=== PATIENT | male | born 1955 ===

== ENCOUNTER → 2020-03-29 10:04 | Outpatient (BNVA) | payer BC, SELFPAY | PROVIDERS: Visit Provider Urology | DX: E29.1 Testicular hypofunction (principal) | CPT/HCPCS: 99212 ==

== ENCOUNTER → 2020-05-29 10:52 | Outpatient (BNVA) | payer BC, SELFPAY | PROVIDERS: Visit Provider Urology ==

== ENCOUNTER → 2020-12-27 10:40 | Outpatient (BNVA) | payer BC, SELFPAY | PROVIDERS: Visit Provider Urology ==

== ENCOUNTER → 2021-07-05 10:05 | Outpatient (BNVA) | payer MEDICARE, OTHER, SELFPAY | PROVIDERS: Visit Provider Urology | DX: E29.1 Testicular hypofunction (principal) | CPT/HCPCS: Q3014 ==

== ENCOUNTER 2021-07-19 13:52 | Outpatient (REF) | payer MEDICARE, OTHER, SELFPAY ==
--- NOTE | ~2021-07-19 | US_ITS ---
EXAMINATION: US RETROPERITONEAL LIMITED (RENAL ONLY) CLINICAL INFORMATION: Calculus of kidney. COMPARISON: None TECHNIQUE: Real-time imaging of the kidneys. FINDINGS: RIGHT KIDNEY: 11.0 x 5.0 x 5.8 cm (SAG x AP x TRV). The kidney is normal in size, contour, and echogenicity. Renal cortical thickness is normal. No calculi or focal parenchymal lesions. No hydronephrosis. LEFT KIDNEY: 11.5 x 6.1 x 5.7 cm (SAG x AP x TRV). The kidney is normal in size, contour, and echogenicity. Renal cortical thickness is normal. No renal calculi or hydronephrosis. There is an anechoic, nonnodular, noncalcified, nonseptated simple cyst measuring 1.1 x 0.9 x 1.0 cm in the mid kidney. Within the mid kidney there is a complex mass measuring 1.5 x 1.3 x 1.5 cm. There is peripheral echogenic thickening. There is thick septation measuring 4 mm.. There may be increased echogenicity within the septations. No calcification is seen within the mass. This would be classified as Bosniak 3 cyst. An MRI of this cystic mass is recommended for further evaluation. Further evaluation to exclude malignancy is recommended. US/US renal BI IMPRESSION: 1. There are bilateral nonobstructed kidneys. 2. There is a Bosniak 3 cystic mass within the mid left kidney. An MRI is recommended for further evaluation..
== END 2021-07-19 13:53 | disposition home or self-care (01) ==
LOC: HO.HMGCX 13:52
PROVIDERS: Visit Provider Urology
DX: N20.0 Calculus of kidney (principal)
CPT/HCPCS: 76775

== ENCOUNTER → 2022-01-02 08:09 | Outpatient (BNVA) | payer MEDICARE, OTHER, SELFPAY | PROVIDERS: Visit Provider Urology | DX: N28.1 Cyst of kidney, acquired (principal); E29.1 Testicular hypofunction; N52.9 Male erectile dysfunction, unspecified | CPT/HCPCS: Q3014 ==

== ENCOUNTER 2022-06-10 13:19 | Outpatient (REF) | payer MEDICARE, OTHER, SELFPAY ==
--- NOTE | ~2022-06-10 | MR_ITS ---
EXAMINATION: MR kidney wo/w con CLINICAL INFORMATION: Complex renal cyst COMPARISON: Renal cyst 07/19/2021 TECHNIQUE: MRI of the abdomen before and after the IV administration of 9 mL of Gadavist was obtained using routine sequences. FINDINGS: Exam is limited by the [id number]. The upper portion of the liver and spleen were excluded from the [id number] on this MR abdomen targeted to evaluate the kidneys. LUNG BASES: The visualized lung bases are unremarkable. KIDNEYS AND URETERS: Bosniak 1 bilateral renal cysts, and few Bosniak 2 left renal cysts, some which demonstrate intrinsic homogeneous hyperintense signal or a single thin internal septation. No routine follow up imaging recommended. No suspicious renal mass. GALLBLADDER: Unremarkable. LIVER AND BILIARY TREE: Unremarkable where imaged. PANCREAS: Unremarkable SPLEEN: Unremarkable where imaged. ADRENAL GLANDS: Unremarkable GASTROINTESTINAL TRACT: Unremarkable. LYMPH NODES: No lymphadenopathy. VASCULAR: Unremarkable ABDOMINAL WALL: Unremarkable. OSSEOUS STRUCTURES: T2 hyperintense lesion in the T12 vertebral body which saturates out on fat suppressed sequences and may reflect focal fat versus possibly a hemangioma. MR/MR kidney wo/w con IMPRESSION: Bilateral Bosniak 1 and Bosniak 2 renal lesions, for which no follow-up imaging is recommended. No suspicious renal mass.
== END 2022-06-10 13:20 | disposition home or self-care (01) ==
LOC: HO.MRI 13:19
PROVIDERS: PCP Internal Medicine; Visit Provider Urology
DX: N28.1 Cyst of kidney, acquired (principal)
CPT/HCPCS: 74181; A9585

== ENCOUNTER 2022-06-23 13:29 | Outpatient (REF) | payer MEDICARE, OTHER, SELFPAY ==
[2022-06-23 16:47] LABS: Hematocrit 49.2 % (42.0-52.0); Hemoglobin 16.2 g/dl (14.0-18.0); Mean Corpuscular HGB Conc 32.9 g/dl (31.0-36.0); Mean Platelet Volume 9.9 fL (9.4-12.4); Platelet Count 233 X10*3/uL (160-400); Red Blood Count 5.59 X10*6/uL (4.60-5.80); Red Cell Distribution Width 12.5 % (11.0-16.0); White Blood Count 8.2 X10*3/uL (4.8-10.8)
[2022-06-23 17:04] LABS: Blood Urea Nitrogen 32 mg/dL (9-16); Estimated Glomerular Filt Rate > 60
[2022-06-23 17:22] LABS: Prostate Specific Antigen 0.29 ng/mL (<0.05-4.0)
[2022-07-01 17:24] LABS: Testosterone, Free 83.5 pg/mL (35.0-155.0); Testosterone, Total 500 ng/dL (250-1100)
== END 2022-06-23 13:30 | disposition home or self-care (01) ==
LOC: HO.HMGCLDS 13:29
PROVIDERS: PCP Internal Medicine; Visit Provider Urology
DX: Z12.5 Encounter for screening for malignant neoplasm of prostate (principal); E29.1 Testicular hypofunction; N28.1 Cyst of kidney, acquired
CPT/HCPCS: 36415; 82565; 84153; 84402; 84403; 84520; 85027

== ENCOUNTER → 2022-07-03 11:33 | Outpatient (BNVA) | payer MEDICARE, OTHER, SELFPAY | PROVIDERS: PCP Internal Medicine; Visit Provider Urology | DX: E29.1 Testicular hypofunction (principal); N28.1 Cyst of kidney, acquired; Z79.899 Other long term (current) drug therapy | CPT/HCPCS: 99212 ==

== ENCOUNTER 2022-12-29 14:05 | Outpatient (REF) | payer MEDICARE, OTHER, SELFPAY ==
[2022-12-29 17:05] LABS: Hematocrit 51.6 % (42.0-52.0); Hemoglobin 17.5 g/dl (14.0-18.0); Mean Corpuscular HGB Conc 33.9 g/dl (31.0-36.0); Mean Corpuscular Hemoglobin 29.7 pg (27.0-33.0); Mean Corpuscular Volume 87.5 fL (80.0-98.0); Mean Platelet Volume 9.9 fL (9.4-12.4); Platelet Count 244 X10*3/uL (160-400); Red Cell Distribution Width 12.4 % (11.0-16.0); White Blood Count 9.1 X10*3/uL (4.8-10.8)
[2022-12-29 17:40] LABS: Prostate Specific Antigen 0.37 ng/mL (<0.05-4.0)
[2023-01-02 15:48] LABS: Testosterone, Total 1230 ng/dL (250-1100)
== END 2022-12-29 14:06 | disposition home or self-care (01) ==
LOC: HO.HMGCLDS 14:05
PROVIDERS: PCP Internal Medicine; Visit Provider Urology
DX: E29.1 Testicular hypofunction (principal); Z12.5 Encounter for screening for malignant neoplasm of prostate
CPT/HCPCS: 36415; 84153; 84403; 85027

== ENCOUNTER 2023-01-07 08:34 | Outpatient (AMB) | payer MEDICARE, OTHER, SELFPAY ==
--- NOTE | 2023-01-07 08:35 | MHC.OFFVIS ---
Intake Intake Visit Reasons: 6M LABS(set) Intake Note: Patient is present for Follow Up Urology Med: Testosterone Antibiotic Allergy: None Blood Thinner: None [facility]acy: [facility] Allergies No Known Allergies [No Known Allergies*] Allergy (Verified 01/07/23 08:36) Medication List - Last Reconciled 01/07/23 by Danish Gonzales MD empagliflozin (Jardiance) 10 mg PO DAILY metoprolol succinate ER 100 mg PO DAILY rosuvastatin 20 mg PO BEDTIME sacubitril-valsartan 97-103 mg (Entresto) 1 tab PO BID spironolactone 12.5 mg PO DAILY testosterone 4 pumps topical DAILY 30 days HPI HPI Comments History of Present Illness Details Luan is a very pleasant male. He is a patient of Dr Wood. He is seen for the following urologic conditions - hypogonadism - renal cyst complex - erectile dysfunction Telemedicine Evaluation 15 min Consultation [facility] Video attempted Consistent rise in testosterone level despite stable administration of gel Has recently switched aldosterone antagonist medication This may have off target effects with reduced testosterone clearance Adjust dosage to 1 pump per per day Repeat labs in 3 months Has been undergoing cardiac review following mitral valve repair mid 2020 Complex renal cyst Bosniak 3 Detected through ultrasound 07/30 Left 1.2 cm question complex renal cyst 04/01 bilateral Bosniak type 2 cysts. No need for further follow-up Hypogonadism: He presents today for further evaluation and followup of his hypogonadism - discussed likelihood of damage secondary to viral illness. Genetics may be warranted if fertility were a primary concern. Initial symptoms include erectile dysfunction Yes decreased libido Yes change in mood/depression Yes in muscle size/strength No increased fatigue/malaise Yes The onset of symptoms has been gradual Associate conditions include - diabetes obstructive sleep apnea No CAD - valve issues - mitral valve replacement 2019 dyslipidemia Yes hypertension Yes obesity No stress - financial, family, employment No heavy alcohol or illicit drug use No Laboratory results 07/28 , baseline - T 346 09/27 LH 25, T 240 10/28 T 290 - 02/27 T390 - 05/31 T 430, 11/28 T 460, Hct 44, PSA 0.3, 06/01 T 461 P 0.3, 11/29 T 412 P 0.3, 07/03 T 800 F 82 P 0.3, T 1230 F 84 Review labs in [address] [place] [address] Medical History Male hypogonadism Review of Systems Const All systems reviewed & are unremarkable except as noted in HPI and below Reports no additional complaints Resp Reports no additional complaints GI Reports no additional complaints Reports as per HPI Musc Reports no additional complaints Physical Exam Telemedicine evaluation Appropriate responses Regular breathing rate and rhythm HEENT Head: Yes normal to inspection Ears: hearing grossly normal bilaterally Eyes General: appearance normal, both eyes and all related structures Neck Neck: Yes normal visual inspection Chest Chest palpation & inspection: normal inspection of the chest Resp Effort & Inspection: normal respiratory effort and able to speak in complete sentences Assessment & Plan Assessment & Plan (1) Erectile dysfunction: Code(s): N52.9 - Male erectile dysfunction, unspecified (2) Hypogonadism in male: Code(s): E29.1 - Testicular hypofunction Plan Three month follow-up Orders: Orders Testosterone, Free/Total 3 Months E29.1 - Testicular hypofunction Patient Instructions: Imaging studies, laboratory and physical exam results were discussed and reviewed in detail. No major barriers to patient understanding were identified. An opportunity to ask questions regarding the treatment plan was provided. All questions were answered. The patient expressed understanding and agreement with the above treatment plan. The patient is aware they should contact our office by phone for worsening of their current condition or the appearance of new urologic symptoms. Compliance is encouraged with any medications and followup testing that is ordered. It is a privilege to participate in the urologic care of your patient. If you have any questions or concerns regarding treatment for the above conditions, or other urologic issues, please do not hesitate to contact me. The office telephone contact is [phone]. This note is constructed using voice recognition software. While every effort has been made to ensure accuracy emt intermediate errors may have been included. Yours sincerely, Dr Danish Gonzales MD, DINO [facility] - Urology Providers of Expert, Compassionate Care for the Genitourinary System Telehealth Telehealth Location of provider rendering services: practice address Location of patient: address on file Patient Identification confirmed using: Name, : Yes Telehealth method: video Patient verbally consented to treatment: Yes Patient verbally consented to billing insurance company: Yes Patient informed of any privacy concerns related to visit: Yes Coding Level of Care Code Tele Est Pt Level 4 (27578) Diagnoses Erectile dysfunction N52.9 Hypogonadism in male E29.1
== END 2023-01-07 09:44 | disposition home or self-care (01) ==
LOC: HO.HUSH 08:34
PROVIDERS: PCP Internal Medicine; Visit Provider Urology
DX: N52.9 Male erectile dysfunction, unspecified (principal); E29.1 Testicular hypofunction
CPT/HCPCS: 99213

== ENCOUNTER → 2023-01-07 08:34 | Outpatient (BNVA) | payer MEDICARE, OTHER, SELFPAY | PROVIDERS: PCP Internal Medicine; Visit Provider Urology | DX: N52.9 Male erectile dysfunction, unspecified (principal); E29.1 Testicular hypofunction | CPT/HCPCS: Q3014 ==

== ENCOUNTER 2023-03-31 10:31 | Outpatient (REF) | payer MEDICARE, OTHER, SELFPAY ==
[2023-04-06 15:28] LABS: Testosterone, Free 57.9 pg/mL (35.0-155.0); Testosterone, Total 435 ng/dL (250-1100)
== END 2023-03-31 10:32 | disposition home or self-care (01) ==
LOC: HO.HMGCLDS 10:31
PROVIDERS: PCP Internal Medicine; Visit Provider Urology
DX: E29.1 Testicular hypofunction (principal)
CPT/HCPCS: 36415; 84402; 84403

== ENCOUNTER 2023-04-09 08:34 | Outpatient (AMB) | payer MEDICARE, OTHER, SELFPAY ==
--- NOTE | 2023-04-09 08:39 | MHC.OFFVIS ---
Intake Intake Visit Reasons: 3M Testosterone(set) Intake Note: Patient is Present for Telephone Follow Up Testosterone Urology Med: Testosterone Antibiotic Allergy: none Blood Thinner:none Allergies No Known Allergies [No Known Allergies*] Allergy (Verified 04/09/23 08:40) Medication List - Last Reconciled 04/09/23 by Danish Gonzales MD empagliflozin (Jardiance) 10 mg PO DAILY eplerenone 25 mg PO DAILY metoprolol succinate ER 100 mg PO DAILY rosuvastatin 20 mg PO BEDTIME sacubitril-valsartan 97-103 mg (Entresto) 1 tab PO BID spironolactone 12.5 mg PO DAILY testosterone 3 pumps topical DAILY 30 days HPI HPI Comments History of Present Illness Details Luan is a very pleasant male. He is a patient of Dr Wood. He is seen for the following urologic conditions - hypogonadism - renal cyst complex - erectile dysfunction Telemedicine Evaluation 15 min Consultation [facility] Video attempted Appropriate response decrease in testosterone gel Appears that spironolactone had the aldosterone antagonist effect with reduced testosterone clearance Consistent rise in testosterone level despite stable administration of gel Continue with 1 pump daily Repeat labs in 6 months Has been undergoing cardiac review following mitral valve repair mid 2020 Complex renal cyst Bosniak 3 Detected through ultrasound 07/30 Left 1.2 cm question complex renal cyst 04/01 bilateral Bosniak type 2 cysts. No need for further follow-up Hypogonadism: He presents today for further evaluation and followup of his hypogonadism - discussed likelihood of damage secondary to viral illness. Genetics may be warranted if fertility were a primary concern. Initial symptoms include erectile dysfunction Yes decreased libido Yes change in mood/depression Yes in muscle size/strength No increased fatigue/malaise Yes The onset of symptoms has been gradual Associate conditions include - diabetes obstructive sleep apnea No CAD - valve issues - mitral valve replacement 2019 dyslipidemia Yes hypertension Yes Laboratory results 07/28 , baseline - T 346 09/27 LH 25, T 240 10/28 T 290 - 02/27 T390 - 05/31 T 430, 11/28 T 460, Hct 44, PSA 0.3, 06/01 T 461 P 0.3, 11/29 T 412 P 0.3, 07/03 T 800 F 82 P 0.3, T 1230 F 84 H 51.6, 04/02 435 Review labs in 6m PFSH Medical History Male hypogonadism Assessment & Plan Assessment & Plan (1) Hypogonadism in male: Code(s): E29.1 - Testicular hypofunction (2) Erectile dysfunction: Code(s): N52.9 - Male erectile dysfunction, unspecified Plan Good response reduction in testosterone Orders: Orders Prostate Specific Antigen 6 Months E29.1 - Testicular hypofunction Testosterone, Total 6 Months E29.1 - Testicular hypofunction Complete Blood Count no Diff 6 Months E29.1 - Testicular hypofunction Medications: Changed From testosterone apply 2 pumps over max area of ONE upper arm and shoulder, 1 pumps over OTHER upper arm and shoulder 3 pumps topical DAILY 30 days 150 grams 5RF E29.1 - Testicular hypofunction To testosterone apply 1 pumps over max area daily 1 pump topical DAILY 75 grams 5RF 30 days E29.1 - Testicular hypofunction Patient Instructions: Imaging studies, laboratory and physical exam results were discussed and reviewed in detail. No major barriers to patient understanding were identified. An opportunity to ask questions regarding the treatment plan was provided. All questions were answered. The patient expressed understanding and agreement with the above treatment plan. The patient is aware they should contact our office by phone for worsening of their current condition or the appearance of new urologic symptoms. Compliance is encouraged with any medications and followup testing that is ordered. It is a privilege to participate in the urologic care of your patient. If you have any questions or concerns regarding treatment for the above conditions, or other urologic issues, please do not hesitate to contact me. The office telephone contact is [phone]. This note is constructed using voice recognition software. While every effort has been made to ensure accuracy electronic controls repairer supervisor errors may have been included. Yours sincerely, Dr Danish Gonzales MD, DINO [facility] - Urology Providers of Expert, Compassionate Care for the Genitourinary System Telehealth Telehealth Location of provider rendering services: practice address Location of patient: address on file Patient Identification confirmed using: Name, : Yes Telehealth method: video Patient verbally consented to treatment: Yes Patient verbally consented to billing insurance company: Yes Patient informed of any privacy concerns related to visit: Yes Coding Level of Care Code Tele Est Pt Level 3 (45835) Diagnoses Hypogonadism in male E29.1 Erectile dysfunction N52.9
== END 2023-04-09 10:37 | disposition home or self-care (01) ==
LOC: HO.HUSH 08:34
PROVIDERS: PCP Internal Medicine; Visit Provider Urology
DX: E29.1 Testicular hypofunction (principal); N52.9 Male erectile dysfunction, unspecified
CPT/HCPCS: 99213

== ENCOUNTER → 2023-04-09 08:34 | Outpatient (BNVA) | payer MEDICARE, OTHER, SELFPAY | PROVIDERS: PCP Internal Medicine; Visit Provider Urology ==

== ENCOUNTER 2023-10-20 14:27 | Outpatient (REF) | payer MEDICARE, OTHER, SELFPAY ==
[2023-10-20 16:13] LABS: Hematocrit 46.2 % (42.0-52.0); Hemoglobin 15.9 g/dl (14.0-18.0); Mean Corpuscular HGB Conc 34.4 g/dl (31.0-36.0); Mean Corpuscular Hemoglobin 30.3 pg (27.0-33.0); Mean Platelet Volume 9.8 fL (9.4-12.4); Platelet Count 229 X10*3/uL (160-400); Red Blood Count 5.25 X10*6/uL (4.60-5.80); Red Cell Distribution Width 12.4 % (11.0-16.0); White Blood Count 8.6 X10*3/uL (4.8-10.8)
[2023-10-20 16:55] LABS: Prostate Specific Antigen 0.32 ng/mL (<0.05-4.0)
[2023-10-24 17:18] LABS: Testosterone, Total 462 ng/dL (250-1100)
== END 2023-10-20 14:28 | disposition home or self-care (01) ==
LOC: HO.HMGCLDS 14:27
PROVIDERS: PCP Internal Medicine; Visit Provider Urology
DX: E29.1 Testicular hypofunction (principal); Z12.5 Encounter for screening for malignant neoplasm of prostate
CPT/HCPCS: 36415; 84153; 84403; 85027

== ENCOUNTER 2023-10-29 10:19 | Outpatient (AMB) | payer MEDICARE, OTHER, SELFPAY ==
--- NOTE | 2023-10-29 10:38 | MHC.OFFVIS ---
Intake Visit Reasons: 6M PSA/Testo/CBC(pending) Intake Note: Patient is Present for Follow Up labs Urology Medication: Testosterone Antibiotic Allergies:None Blood Thinners:None Allergies No Known Allergies [No Known Allergies*] Allergy (Verified 10/29/23 10:39) Medication List - Last Reconciled 10/29/23 by Danish Gonzales MD empagliflozin (Jardiance) 10 mg PO DAILY eplerenone 25 mg PO DAILY metoprolol succinate ER mg PO DIRECTED rosuvastatin 20 mg PO BEDTIME sacubitril-valsartan 97-103 mg (Entresto) 1 tab PO BID spironolactone 12.5 mg PO DAILY testosterone 2 pumps topical DAILY 30 days HPI Comments Details: Luan is a very pleasant male. He is a patient of Dr Wood. He is seen for the following urologic conditions - hypogonadism - renal cyst complex - erectile dysfunction Lab work remains in range with 1 pump daily Ongoing cardiac related issues following valve repair Try to improve EF on echo Has had reduction in metoprolol which had significant cap on heart rate excursion This led to him feeling quite tired whenever he tried any effort Will go back to 2 pumps daily and review in 6 months Has been undergoing cardiac review following mitral valve repair mid 2020 Complex renal cyst Bosniak 3 Detected through ultrasound 07/30 Left 1.2 cm question complex renal cyst 04/01 bilateral Bosniak type 2 cysts. No need for further follow-up Hypogonadism: 07/03 Appears that spironolactone had the aldosterone antagonist effect with reduced testosterone clearance Consistent rise in testosterone level despite stable administration of gel He presents today for further evaluation and followup of his hypogonadism - discussed likelihood of damage secondary to viral illness. Genetics may be warranted if fertility were a primary concern. Initial symptoms include erectile dysfunction Yes decreased libido Yes change in mood/depression Yes in muscle size/strength No increased fatigue/malaise Yes The onset of symptoms has been gradual Associate conditions include - diabetes obstructive sleep apnea No CAD - valve issues - mitral valve replacement 2019 dyslipidemia Yes hypertension Yes Laboratory results 07/28 , baseline - T 346 09/27 LH 25, T 240 10/28 T 290 - 02/27 T390 - 05/31 T 430, 11/28 T 460, Hct 44, PSA 0.3, 06/01 T 461 P 0.3, 11/29 T 412 P 0.3, 07/03 T 800 F 82 P 0.3, T 1230 F 84 H 51.6, 04/02 435, 11/01 462 58 0.3 46% Review labs [facility] History Male hypogonadism Review of Systems Const Denies chills and Denies fever(s) Card Reports no additional complaints and Denies syncope Resp Denies cough GI Denies abdominal pain and Denies heartburn Reports as per HPI and Denies change in libido Neuro Denies syncope Psych Denies change in libido Endo Denies change in libido Physical Exam Const General: cooperative, healthy appearing, comfortable and no acute distress Orientation/consciousness: patient oriented x3 HEENT Face and sinus: Yes normal facial exam Mouth: moist mucous membranes Neck Neck: Yes normal visual inspection, Yes full ROM and Yes trachea midline Chest Chest palpation & inspection: normal inspection of the chest Resp Effort & Inspection: normal respiratory effort, able to speak in complete sentences and no respiratory distress GI Inspection: Yes normal to inspection Back/Spine/Pelvis Cervical Spine: normal cervical lordosis Thoracic/Lumbar Spine: thoracic and lumbar spine normal to inspection Skin General skin exam: no rashes or lesions noted Neuro General: patient oriented x3, gait normal, tone normal and moves all extremities Extrem General: Yes normal to inspection and Yes capillary refill normal Assessment & Plan Assessment & Plan (1) Erectile dysfunction: Code(s): N52.9 - Male erectile dysfunction, unspecified Category: Medical (2) Hypogonadism in male: Code(s): E29.1 - Testicular hypofunction Category: Medical Plan Six-month follow-up labs Orders: Orders Testosterone, Total 6 Months E29.1 - Testicular hypofunction Complete Blood Count no Diff 6 Months E29.1 - Testicular hypofunction Prostate Specific Antigen 6 Months E29.1 - Testicular hypofunction Patient Instructions: Imaging studies, laboratory and physical exam results were discussed and reviewed in detail. No major barriers to patient understanding were identified. An opportunity to ask questions regarding the treatment plan was provided. All questions were answered. The patient expressed understanding and agreement with the above treatment plan. The patient is aware they should contact our office by phone for worsening of their current condition or the appearance of new urologic symptoms. Compliance is encouraged with any medications and followup testing that is ordered. It is a privilege to participate in the urologic care of your patient. If you have any questions or concerns regarding treatment for the above conditions, or other urologic issues, please do not hesitate to contact me. The office telephone contact is [phone]. This note is constructed using voice recognition software. While every effort has been made to ensure accuracy torpedo shooter errors may have been included. Yours sincerely, Dr Danish Gonzales MD, DINO [facility] - Urology Providers of Expert, Compassionate Care for the Genitourinary System Coding Level of Care Code Est Pt Level 4 (44270) Diagnoses Erectile dysfunction N52.9 Hypogonadism in male E29.1
== END 2023-10-29 11:03 | disposition home or self-care (01) ==
PROVIDERS: PCP Internal Medicine; Visit Provider Urology
DX: N52.9 Male erectile dysfunction, unspecified (principal); E29.1 Testicular hypofunction
CPT/HCPCS: 99213

== ENCOUNTER → 2023-10-29 10:19 | Outpatient (BNVA) | payer MEDICARE, OTHER, SELFPAY | PROVIDERS: PCP Internal Medicine; Visit Provider Urology | DX: N52.9 Male erectile dysfunction, unspecified (principal); E29.1 Testicular hypofunction | CPT/HCPCS: 99212 ==

== ENCOUNTER 2024-04-14 14:50 | Outpatient (REF) | payer MEDICARE, OTHER, SELFPAY ==
[2024-04-14 16:32] LABS: Hematocrit 48.2 % (42.0-52.0); Hemoglobin 16.3 g/dl (14.0-18.0); Mean Corpuscular HGB Conc 33.8 g/dl (31.0-36.0); Mean Corpuscular Volume 88.6 fL (80.0-98.0); Mean Platelet Volume 10.3 fL (9.4-12.4); Platelet Count 236 X10*3/uL (160-400); Red Blood Count 5.44 X10*6/uL (4.60-5.80); Red Cell Distribution Width 12.6 % (11.0-16.0); White Blood Count 8.1 X10*3/uL (4.8-10.8)
[2024-04-14 17:17] LABS: Prostate Specific Antigen 0.32 ng/mL (<0.05-4.0)
[2024-04-19 12:18] LABS: Testosterone, Total 760 ng/dL (250-1100)
--- OUTSIDE RECORDS SUMMARY | 2024-04-20 04:09 | XMS_ITS ---
[facility] Organization [facility] [place] Address [address] [place] [address] Care Team Providers Care Gravel Roofer Name Role Phone Serjio Wood MD Primary Care Provider Red Merritt Unavailable [phone] Allergies No Known Allergies REASON FOR VISIT Foot pain Medications Medication SIG (Take, Route, Frequency, Duration) Notes Start Date End Date Status Entresto 97-103 MG Oral for 30 Days Active Eplerenone 25 MG Oral for 90 Days Active Jardiance 10 MG Oral for 90 Days Active Voltaren 1 % as directed Externally 03/25/2023 Active Testosterone 1.62 % Transdermal for 30 Days Active Metoprolol Tartrate 100 MG 1 tablet with food Orally Twice a day for 30 day(s) 03/11/2023 Active Rosuvastatin Calcium 20 MG TAKE 1 TABLET BY MOUTH DAILY Oral for 90 Days Active Social History Tobacco Use: Social History Observation Description Date Details (start date - stop date) Former Smoker NA - NA Tobacco Use/Smoking Question Answer Notes Are you a: former smoker Additional Findings: Tobacco Non-User Current no n-smoker Alcohol Screen Question Answer Notes Did you have a drink containing alcohol in the p ast year? Yes Points 0 Interpretation Negative Tobacco use other than smoking: Question Answer Notes Are you an other tobacco user? No Problems Problem Type SNOMED Code ICD Code Onset Dates Problem Status W/U Status Risk Notes Problem Localized, primary osteoarthritis of the ankle and/or foot (054274254) Primary osteoarthrit is, right ankle and foot (M19.071) Active confirmed Vital Signs Height 6 ft in 03/25/2023 Weight 195 lbs 03/25/2023 BMI 26.44 kg/m2 03/25/2023 Encounters Encounter Location Date Provider Diagnosis [facility] [address] [place] [address] 03/25/2023 Red Reyes Pain in right foot M79.671 and Primary osteoarthritis, right ankle and foot M19.071 Assessments Encounter Date Diagnosis (ICD Code) Assessment Notes Treatment Notes Treatment Clinical Notes Section Notes 03/25/2023 Pain in right foot (ICD-10 - M79.671) 03/25/2023 Primary osteoarthritis, right ankle and foot (ICD-10 - M19.071) Plan Of Treatment Medication Medication Name Sig Start Date Stop Date Notes Voltaren 1 % as directed Externally 03/25/2023 Pending Test Test Name Order Date X ray : Ankle, right 3V 03/25/2023 Next Appt Details Follow Up: prn, Reason: Progress Notes * Luan CRUZ RDOB: [birth year] (68 yo M)Acc No.[id number]:03/25/2023 Progress Notes Patient:?Luan Cruz R Provider:?Red Reyes DPM :1955???Age:68 Y???Sex:Male Kennedy e:03/25/2023 Address:[address] [place] [address] Pcp:Serjio Wood MD Subjective: * Chief Complaints: * ???Foot pain * HPI: ???Foot Pain:?Nature:?stiffness , aching.?Location?Right , Rearfoot and ankle.?Duration:?several years.?Onset/Cause:?injury playing [employer] at age 19--never tx.?Course:?intermittent--happens every few weeks and pain can last several hours, worse and no pattern to condition.?Aggrevated:?standing , walking.?Treatments:?none.?Quality/Severity?7 , scale 1-10.? * ROS:?General/Constitutional:?Nausea?denies.?Vomiting?denies.?Hunger Thirst?denies.?Loss appetite?denies.?Chills?denies.?Fatigue?denies.?Fever?denies.?Night Sweats?denies.?Unexplained weight loss?denies.?Ophthalmologic:?Blurred vision?denies.?Red eye?denies.?HEENTM:?Dentures?denies.?Dizziness?denies.?Glasses/contacts?denies.?Retinopathy?de nies.?Blurred/double vision?denies.?TMJ?denies.?Discharge/drainage?denies.?Implants?denies.?Hard of hearing denies.?Difficulty chewing/swallowing/speaking?denies.?Nose bleeds?denies.?Sore mouth?denies.?Swollen glands?denies.?Respiratory:?On Oxygen?denies.?Pneumonia/pleurisy?denies.?Bronchitis?denies.?Emphysema?denies.?C oughing?denies.?Cough blood?denies.?Shortness of breath?denies.?Wheezing?denies.?Cardiovascular:?Pacemaker?denies.?MVP?denies.?WPW?denies.?CHF?denies.?Heart attack?denies.?Septal defect?denies.?Rapid beat?denies.?Chest pain ?denies.?Atrial Fib.?denies.?Murmur/Palpitations?denies.?Gastrointestinal:?Hemorrhoids?denies.?Stomach/Abdominal pain?denies.?Dark blood stool?denies.?Irritable bowel ?denies.?Constipation?denies.?Diarrhea?denies.?Vomiting?denies.?Hematology:?Swelling?denies.?Bruising?denies.?Bleeding problem?denies.?Genitourinary:?Blood urine?denies.?Frequent/Painfu/urination/bladder control?denies.?Kidney stones?denies.?Infection (UTI)?denies.?Nephropathy?denies.?Musculoskeletal:?Hammertoes?denies.?Bunions?denies.?Scoliosis/kyphosis?denies.?Muscle cramps / walking?denies.?Generalized aches and pains?denies.?Weakness?denies.?Integ.:?[place]?denies.?Scars?denies.?Corns/calluses?denies.?Ingrown nails?denies.?Painful nails?denies.?Rashes?denies.?Neurologic:?Difficulty sleeping?denies.?Bipolar?denies.?Brain disorder?denies.?Balance trouble?denies.?Confusion?denies.?Fainting/blackouts?denies.?Headache?denies.?Tr emors?denies.? * Medical History:? * Surgical History:?mitral mehnaz ve surgery 06/30Bone Spurs 12/23 * Hospitalization/Major Diagno stic Procedure:?Denies Past Hospitalization * Family History:?Mother: eliane dawkins.?Father: .? * Social History:?Tobacco Use:?Tobacco Use/Smoking?Are you a:?former smoker ?Additional Findings: Tobacco Non-User?Current non-smoker ?Tobacco use other than smoking?Are you an other tobacco user??No ???Drugs/Alcohol:?Drugs?Have you used drugs other than those for medical reasons in the past 12 months??No ?Alcohol Screen?Did you have a drink containing alcohol in the past year??Yes ?Points?0 ?Interpretation?Negative ???Miscellaneous:?Caffeine: yes. ?no Children. ?Marital status: single. * Medications:?TakingMetoprolo l Tartrate 100 MG Tablet 1 tablet with food Orally Twice a dayRosuvastatin Calcium 20 MG Tablet TAKE 1 TABLET BY MOUTH DAILY Oral Entresto 97-103 MG Tablet Oral Eplerenone 25 MG Tablet Oral Jardiance 10 MG Tablet Oral Testosterone 1.62 % Gel Transdermal Medication List reviewed and reconciled with the patientTaking Metoprolol Tartrate 100 MG Tablet 1 tablet with food Orally Twice a dayTaking Rosuvastatin Calcium 20 MG Tablet TAKE 1 TABLET BY MOUTH DAILY Oral Taking Entresto 97-103 MG Tablet Oral Taking Eplerenone 25 MG Tablet Oral Taking Jardiance 10 MG Tablet Oral Taking Testosterone 1.62 % Gel Transdermal Medication List reviewed and reconciled with the patient * Allergies:?N.K.D.A.yes[Aller gies Verified] Objective: * Vitals:?Ht: 6 ft, Wt:195, BM I:26.44, Shoe size: 10.5, Ht-cm: 182.88 cm, Wt-k.45 kg. * Examination: ???General Examination: ?GENERAL APPEARANCE:?pleasant, alert, well nourished, well developed, well hydrated, with good attention to hygene/body habitus, and in no acute distress.?ORIENTED:?person,place, and time.?Neurological: ?SENSORY:?Neurological exam is normal, pain sensation normal, vibration sensation intact, pinprick sensation is normal in the lower extremities, denies, tingling, burning, anesthesia, paresthesia, hyperesthesia, B/L.?TINEL'S COMPRESSION:?Negative tarsal tunnel, karri pedis, and medial calcaneal nerves B/L.?BABINSKI REFLEX:?absent.?Neuroma Pain: ?PALPATION:?No interspace pain noted on palpation.?Vascular: ?DP PULSES:?2/4, B/L.?PT PULSES:?2/4, B/L.?CAPILLARY FILL TIME:?3 secs. per digit, B/L.?SKIN TEMPERTURE GRADIENT OF THE LOWER EXTERMITIES:?warm to cool, proximal to distal, B/L.?HAIR GROWTH/TEXTURE/ELASTICITY/TURGOR:?normal, B/L.?PIGMENTATION:?normal, B/L.?EDEMA:?no edema.?TELANGECTASIA:?absent.?VARICOSITIES:?absent.?Dermatologic: ?SKIN FINDINGS:?Skin exam reveals normal texture, elasticity, and tugor. There are no masses. The interspaces are clear, B/L .?Orthopedic: ?MUSCLE STRENGTH:?5/5 all groups in a symmetrical fashion , B/L.?GAIT ABNORMALITY:?pronated, abducted, B/L.?X-Rays - IMAGING REPORT: ?Clinical Indication(s):? Evaluate Biomechanical Deformity.?Views:? 3 views of Ankle, RIGHT.?Findings:? mild generalized decrease in bone density, asymmetrical Ankle joint space narrowing, lateral gutter.?Foot structure:? reveals excess pronation with, anterior break in cyme line-mild.? Assessment: * Assessment: 1.?Pain in right foot - M79. 671 (Primary)?2.?Primary osteoarthritis, right ankle and foot - M19.071? Plan: * Treatment: 2.?Primary osteoarthritis, r ight ankle and foot?Imaging: X ray : Ankle, right 3V * Procedure Codes:?17068 X-RAY EXAM OF RIGHT ANKLE 3V, Modifiers: 26 , RT * Preventive Medicine:? ??Counseling:?Discussion:?-03: Office or other outpatient visit for the evaluation and management of a new patient, which required a medically appropriate history and/or examination and LOW level of DECISION MAKING for: 1 STABLE ACUTE UNCOMPLICATED PROBLEM, 2 OR MORE MINOR PROBLEMS, OR 1 STABLE CHRONIC PROBLEM, THAT POSE(S) A LOW RISK FOR MORBIDITY/MORTALITY. The visit on the day of the encounter encompassed interpreting the data and educating the patient as to the nature of their condition, treatment options available according to their individual PMH, meds, allergies, and overall health/living conditions, as well as any potential risks or complications that may occur from a failure to adhere to, and participate in, the recommended course of therapy. The discussion included a complete verbal, and/or written explanation of the examination results, any x-rays taken, the proposed diagnosis, and outline of the treatment plan. A schedule for future care needs was also explained. The patient verbalized an understanding of the instructions at this time and agreed to be an active participant in their treatment. If the patient should think of any questions or concerns after the visit, I have encouraged the patient to call the office--pt to continue with proper running shoes and hiking boots with hiking poles.? * Follow Up:?prn * Images: * Sign off status: Completed true * Provider:?Red Reyes DPM Date:? 023 Generated for You márquez/Jose/Maryitting on:?04/20/2024 04:09 AM EST History and Physical Notes * HPI (History of Present Illness) Category Sub-Category Detail Notes Category Not es Foot Pain Aggrevated: standing , walking Onset/Cause: injury playing [employer] at age 19--never tx Course: intermittent--happen s every few weeks and pain can last several hours, worse and no pattern to condition Duration: several years Nature: stiffness , aching Treatments: none Quality/Severity 7 , scale 1-10 Location Right , Rearfoot and ankle Examination Category Sub-Category Detail Notes Category Not es Neuroma Pain PALPATION: No interspace pain noted on palpation Neurological SENSORY: Neurological exa m is normal, pain sensation normal, vibration sensation intact, pinprick sensation is normal in the lower extremities, denies, tingling, burning, anesthesia, paresthesia, hyperesthesia, B/L BABINSKI REFLEX: absent TINEL'S COMPRESSION: Negative tarsal kaleb lucila, karri pedis, and medial calcaneal nerves B/L Dermatologic SKIN FINDINGS: Skin exam reveal s normal texture, elasticity, and tugor. There are no masses. The interspaces are clear, B/L Orthopedic GAIT ABNORMALITY: pronated, abducted, B/L MUSCLE STRENGTH: 5/5 all groups in a symmetrical fashion , B/L General Examination GENERAL APPEARANCE: pleasant , alert, well nourished, well developed, well hydrated, with good attention to hygene/body habitus, and in no acute distress ORIENTED: person,place, and ti me Vascular DP PULSES(B): 2/4, B/L PT PULSES(B): 2/4, B/L CAPILLARY FILL TIME: 3 secs. per digit, B/L TEMPERTURE GRADIENT(C): warm to cool, pr oximal to distal, B/L TROPHIC CONDITION-TEXTURE/ELASTICITY/TURGOR/HAIR GROWTH(B): normal, B/L EDEMA(C): no edema TELANGECTASIA: absent VARICOSITIES: absent PIGMENTATION: normal, B/L X-Rays - IMAGING REPORT Findings: mild gen eralized decrease in bone density, asymmetrical Ankle joint space narrowing, lateral gutter Foot structure: reveals excess prona tion with, anterior break in cyme line-mild Views: 3 views of Ankle, RI GHT Clinical Indication(s): Evaluate Biomech anical Deformity
--- OUTSIDE RECORDS SUMMARY | 2024-04-20 04:09 | XMS_ITS ---
Author Organization 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 Generated for Printi yulisa/Hoag/eTransmitting on:?04/20/2024 04:09 AM EST
--- OUTSIDE RECORDS SUMMARY | 2024-04-20 04:10 | XMS_ITS | Patient Health Record ---
[facility] [place] Address [address] [facility] [place] [address] Care Team Providers Care Lay Up Operator Name Role Phone Nina PAUL, Serjio Primary Care Provider Red Merritt Unavailable [phone] Allergies No Known Allergies Reason For Referral No Information Medications Medication SIG (Take, Route, Frequency, Duration) Notes Start Date End Date Status Metoprolol Tartrate 100 MG 1 tablet with food Orally Twice a day for 30 day(s) 03/11/2023 Active Rosuvastatin Calcium 20 MG TAKE 1 TABLET BY MOUTH DAILY Oral for 90 Days Active Entresto 97-103 MG Oral for 30 Days Active Eplerenone 25 MG Oral for 90 Days Active Jardiance 10 MG Oral for 90 Days Active Voltaren 1 % as directed Externally 03/25/2023 Active Testosterone 1.62 % Transdermal for 30 Days Active Social History Tobacco Use: Social [...] primary osteoarthritis of the ankle and/or foot (919500462) Primary osteoarthrit is, right ankle and foot (M19.071) Active confirmed Plan Of Treatment Pending Test Test Name Order Date X ray : Ankle, right 3V 03/25/2023 Insurance Providers Payer Name Payer Address Payer Phone Subscriber Number Group Number Insured Name Patient Relationship to Insured Coverage Start Date Coverage End Date Medicare [employer] [address] [place] [address] [id number] Luan Martinez Self - patient is the insured [facility] [address] [place] [address] [id number] Luan Martinez Self - patient is the insured Medical (General) History Medical History History ICD Code Heart disease High blood pressure Measles Chicken pox Replacement Heart Valves Surgical History Surgery Date(Month/Year) mitral valve surgery 06/30 Bone Spurs 12/23
== END 2024-04-14 14:51 | disposition home or self-care (01) ==
LOC: HO.HMGCLDS 14:50
PROVIDERS: PCP Internal Medicine; Visit Provider Urology
DX: E29.1 Testicular hypofunction (principal); Z12.5 Encounter for screening for malignant neoplasm of prostate
CPT/HCPCS: 36415; 84153; 84403; 85027

== ENCOUNTER 2024-04-29 09:50 | Outpatient (AMB) | payer MEDICARE, OTHER, SELFPAY ==
--- NOTE | 2024-04-29 09:50 | MHC.OFFVIS ---
Intake Visit Reasons: 6m/labs Intake Note: Patient is present for 6M/LABS Urology Medication:TESTOSTERONE Antibiotic Allergy:NONE Blood Thinner:NONE Sustainability Communicator Required: No Allergies No Known Allergies [No Known Allergies*] Allergy (Verified 04/29/24 09:50) HPI Comments Details: Luan is a very pleasant male. He is a patient of Dr Wood. He is seen for the following urologic conditions - hypogonadism - renal cyst complex - erectile dysfunction Telemedicine Evaluation 15 min Consultation DoxBabyBus [place] Video Follow-up from 2 pumps daily Labs are in appropriate zone No longer feeling tired in the afternoon Continue with current dosing We did have a conversation regarding nocturia. He is on Jardiance. This will drop glucose in urine and drag water creating high volume urination and thirst. Ongoing cardiac related issues following valve repair Try to improve EF on echo Has had reduction in metoprolol which had significant cap on heart rate excursion This led to him feeling quite tired whenever he tried any effort Has been undergoing cardiac review following mitral valve repair mid 2020 Complex renal cyst Bosniak 3 Detected through ultrasound 07/30 Left 1.2 cm question complex renal cyst 04/01 bilateral Bosniak type 2 cysts. No need for further follow-up Hypogonadism: 07/03 Appears that spironolactone had the aldosterone antagonist effect with reduced testosterone clearance Consistent rise in testosterone level despite stable administration of gel He presents today for further evaluation and followup of his hypogonadism - discussed likelihood of damage secondary to viral illness. Genetics may be warranted if fertility were a primary concern. Initial symptoms include erectile dysfunction Yes decreased libido Yes change in mood/depression Yes in muscle size/strength No increased fatigue/malaise Yes The onset of symptoms has been gradual Associate conditions include - diabetes obstructive sleep apnea No CAD - valve issues - mitral valve replacement 2019 dyslipidemia Yes hypertension Yes Laboratory results 07/28 , baseline - T 346 09/27 LH 25, T 240 10/28 T 290 - 02/27 T390 - 05/31 T 430, 11/28 T 460, Hct 44, PSA 0.3, 06/01 T 461 P 0.3, 11/29 T 412 P 0.3, 07/03 T 800 F 82 P 0.3, T 1230 F 84 H 51.6, 04/02 435, 11/01 462 58 0.3 46%, 05/03 760 0.3 48 Review labs in 6m [facility] Medical History Male hypogonadism Review of Systems Const All systems reviewed & are unremarkable except as noted in HPI and below Reports no additional complaints Resp Reports no additional complaints GI Reports no additional complaints Reports as per HPI Musc Reports no additional complaints Physical Exam Telemedicine evaluation Appropriate responses Regular breathing rate and rhythm HEENT Head: Yes normal to inspection Ears: hearing grossly normal bilaterally Eyes General: appearance normal, both eyes and all related structures Neck Neck: Yes normal visual inspection Chest Chest palpation & inspection: normal inspection of the chest Resp Effort & Inspection: normal respiratory effort and able to speak in complete sentences Telehealth Telehealth Telehealth Platform: [employer] Location of provider rendering services: practice address Location of patient: address on file Patient Identification confirmed using: Name, : Yes Telehealth method: video Patient verbally consented to treatment: Yes Patient verbally consented to billing insurance company: Yes Patient informed of any privacy concerns related to visit: Yes Minutes spent on Phone/Video with Pt.: 15 Assessment & Plan Assessment & Plan (1) Hypogonadism in male: Code(s): E29.1 - Testicular hypofunction Category: Medical (2) Erectile dysfunction: Code(s): N52.9 - Male erectile dysfunction, unspecified Category: Medical (3) Urinary urgency: Code(s): R39.15 - Urgency of urination Category: Medical Plan Six-month follow-up Orders: Orders Complete Blood Count no Diff 6 Months E29.1 - Testicular hypofunction Prostate Specific Antigen 6 Months E29.1 - Testicular hypofunction Testosterone, Total 6 Months E29.1 - Testicular hypofunction Medications: Refilled testosterone apply 1 pumps to each arm daily 2 pumps topical DAILY 30 days 75 grams 5RF E29.1 - Testicular hypofunction Patient Instructions: Imaging studies, laboratory and physical exam results were discussed and reviewed in detail. No major barriers to patient understanding were identified. An opportunity to ask questions regarding the treatment plan was provided. All questions were answered. The patient expressed understanding and agreement with the above treatment plan. The patient is aware they should contact our office by phone for worsening of their current condition or the appearance of new urologic symptoms. Compliance is encouraged with any medications and followup testing that is ordered. It is a privilege to participate in the urologic care of your patient. If you have any questions or concerns regarding treatment for the above conditions, or other urologic issues, please do not hesitate to contact me. The office telephone contact is [phone]. This note is constructed using voice recognition software. While every effort has been made to ensure accuracy activities concierge errors may have been included. Yours sincerely, Dr Danish Gonzales MD, D[facility] - Urology Providers of Expert, Compassionate Care for the Genitourinary System Coding Level of Care Code Tele Est Pt Level 3 (27292) Diagnoses Hypogonadism in male E29.1 Erectile dysfunction N52.9 Urinary urgency R39.15
--- OUTSIDE RECORDS SUMMARY | 2024-04-29 09:52 | XMS_ITS ---
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 Generated for Printi yulisa/Fadarriang/eTransmitting on:?04/29/2024 09:51 AM EST
--- OUTSIDE RECORDS SUMMARY | 2024-04-29 09:52 | XMS_ITS ---
Author Organization [facility] [place] Address [address] [place] [address] Care Team Providers Care Phonograph Mechanic Name Role Phone Serjio Wood MD Primary Care Provider Red Merritt Unavailable [phone] Allergies No Known Allergies REASON FOR VISIT [...] primary osteoarthritis of the ankle and/or foot (940798029) Primary osteoarthrit is, right ankle and foot (M19.071) Active confirmed Vital Signs Height 6 ft in 03/25/2023 Weight 195 lbs 03/25/2023 BMI 26.44 kg/m2 03/25/2023 Encounters Encounter Location Date Provider Diagnosis [facility] [address] [place] [address] 03/25/2023 Red Reyes Pain in right foot [...] Luan CRUZ RDOB: [birth year] (68 yo M)Acc No.[id number]:03/25/2023 Progress Notes Patient:?Luan Cruz R Provider:?Red Reyes DPM :1955???Age:68 Y???Sex:Male Kennedy e:03/25/2023 Address:[address] [place] [address] Pcp:Serjio Wood MD Subjective: * Chief Complaints: * ???Foot pain * HPI: ???Foot Pain:?Nature:?stiffness , aching.?Location?Right , Rearfoot and ankle.?Duration:?several years.?Onset/Cause:?injury playing [employer]all at age 19--never tx.?Course:?intermittent--happens every few weeks [...] ray : Ankle, right 3V * Procedure Codes:?58972 X-RAY EXAM OF RIGHT ANKLE 3V, Modifiers: [...] DPM Date:? 023 Generated for You márquez/Jose/Maryitting on:?04/29/2024 09:51 AM EST History and Physical Notes * HPI (History of Present Illness) Category Sub-Category Detail Notes Category Not es Foot Pain Aggrevated: standing , walking Onset/Cause: injury playing [employer] ([employer])all at age 19--never tx Course: intermittent--happen s [...] ORIENTED: person,place, and ti me Vascular DP PULSES (B): 2/4, B/L PT PULSES (B): 2/4, B/L CAPILLARY FILL TIME: 3 secs. per digit, B/L TEMPERTURE GRADIENT (C): warm to cool, p roximal to distal, B/L TROPHIC CONDITION-TEXTURE/ELASTICITY/TURGOR/HAIR GROWTH (B): normal, B/L EDEMA (C): no edema TELANGECTASIA: absent VARICOSITIES: absent PIGMENTATION: normal, B/L X-Rays - IMAGING REPORT Findings: mild gen eralized decrease in bone density, asymmetrical Ankle joint space narrowing, lateral gutter Foot structure: reveals excess prona tion with, anterior break in cyme line-mild Views: 3 views of Ankle, RI GHT Clinical Indication(s): Evaluate Biomech anical Deformity
--- OUTSIDE RECORDS SUMMARY | 2024-04-29 09:52 | XMS_ITS | Patient Health Record ---
Author Organization [facility] [place] Address [address] [facility] [address] Care Team Providers Care Integrity Specialist Name Role Phone Nina PAUL, Serjio Primary Care Provider Red Merritt Unavailable [phone] Allergies No Known Allergies Reason For Referral [...] primary osteoarthritis of the ankle and/or foot ([id number]) Primary osteoarthrit is, right ankle and foot (M19.071) Active confirmed Plan Of Treatment Pending Test Test Name Order Date X ray : Ankle, right 3V 03/25/2023 Insurance Providers Payer Name Payer Address Payer Phone Subscriber Number Group Number Insured Name Patient Relationship to Insured Coverage Start Date Coverage End Date Medicare National Govt Svcs Inc [address] [place] [address] [id number] Luan Martinez Self - patient is the insured [facility] Supplement [address] [place] [address] [id number] Luan Martinez Self - patient is the insured Medical (General) History Medical History History ICD Code Heart disease High blood pressure Measles Chicken pox Replacement Heart Valves Surgical History Surgery Date(Month/Year) mitral valve surgery 06/30 Bone Spurs 12/23
== END 2024-04-29 10:18 | disposition home or self-care (01) ==
LOC: HO.HUSH 09:50
PROVIDERS: PCP Internal Medicine; Visit Provider Urology
DX: E29.1 Testicular hypofunction (principal); N52.9 Male erectile dysfunction, unspecified; R39.15 Urgency of urination
CPT/HCPCS: 99213

== ENCOUNTER 2024-10-25 10:24 | Outpatient (REF) | payer MEDICARE, OTHER, SELFPAY ==
--- OUTSIDE RECORDS SUMMARY | 2024-10-25 11:55 | XMS_ITS | Patient Health Record ---
Author Organization [facility] [place] Address [address] [facility] [place] [address] Care Team Providers Care Hogshead Builder Name Role Phone Nina PAUL, Serjio Primary Care Provider Red Merritt Unavailable [phone] Allergies No Known Allergies Reason For Referral [...] primary osteoarthritis of the ankle and/or foot ([id number]) Primary osteoarthrit is, right ankle and foot (M19.071) Active confirmed Plan Of Treatment Pending Test Test Name Order Date X ray : Ankle, right 3V 03/25/2023 Insurance Providers Payer Name Payer Address Payer Phone Subscriber Number Group Number Insured Name Patient Relationship to Insured Coverage Start Date Coverage End Date Medicare National Govt Svcs Inc [address] [place] [address] [id number] Luan Martinez Self - patient is the insured [facility] Medicare Supplement [address] [place] [address] [id number] Luan Martinez Self - patient is the insured Medical (General) History Medical History History ICD Code Heart disease High blood pressure Measles Chicken pox Replacement Heart Valves Surgical History Surgery Date(Month/Year) mitral valve surgery 06/30 Bone Spurs 12/23
[2024-10-25 13:36] LABS: Hemoglobin 15.6 g/dl (14.0-18.0); Mean Corpuscular HGB Conc 32.5 g/dl (31.0-36.0); Mean Corpuscular Hemoglobin 29.1 pg (27.0-33.0); Mean Corpuscular Volume 89.4 fL (80.0-98.0); Platelet Count 241 X10*3/uL (160-400); Red Blood Count 5.37 X10*6/uL (4.60-5.80); Red Cell Distribution Width 12.7 % (11.0-16.0); White Blood Count 7.1 X10*3/uL (4.8-10.8)
[2024-10-29 14:18] LABS: Testosterone, Total 486 ng/dL (250-1100)
== END 2024-10-25 10:25 | disposition home or self-care (01) ==
LOC: HO.HMGCLDS 10:24
PROVIDERS: PCP Internal Medicine; Visit Provider Urology
DX: E29.1 Testicular hypofunction (principal); Z12.5 Encounter for screening for malignant neoplasm of prostate
CPT/HCPCS: 36415; 84153; 84403; 85027

== ENCOUNTER 2024-10-28 10:28 | Outpatient (AMB) | payer MEDICARE, OTHER, SELFPAY ==
--- NOTE | 2024-10-28 10:34 | MHC.OFFVIS ---
Intake Visit Reasons: 6m/labs(labs?) Intake Note: Patient is present for 6M/LABS Urology Medication:TESTOSTERONE Antibiotic Allergy:NONE Blood Thinner:NONE Technical Specialist Cytogenetics Required: No Allergies No Known Allergies (No Known Allergies*) Allergy (Verified 10/28/24 10:35) HPI Comments Details: Luan is a very pleasant male. He is a patient of Dr Wood. He is seen for the following urologic conditions - hypogonadism - renal cyst complex - erectile dysfunction Six-month follow-up Testosterone 2 pumps daily Does have some tiredness in the morning Recommend trying to split dose morning and evening Previous improvement had been noted with 2 pumps daily We did have a conversation regarding nocturia. He is on Jardiance. This will drop glucose in urine and drag water creating high volume urination and thirst. Has been undergoing cardiac review following mitral valve repair mid 2020 Complex renal cyst Bosniak 3 Detected through ultrasound 07/30 Left 1.2 cm question complex renal cyst 04/01 bilateral Bosniak type 2 cysts. No need for further follow-up Hypogonadism: 07/03 Appears that spironolactone had the aldosterone antagonist effect with reduced testosterone clearance Consistent rise in testosterone level despite stable administration of gel He presents today for further evaluation and followup of his hypogonadism - discussed likelihood of damage secondary to viral illness. Genetics may be warranted if fertility were a primary concern. Initial symptoms include erectile dysfunction Yes decreased libido Yes change in mood/depression Yes in muscle size/strength No increased fatigue/malaise Yes The onset of symptoms has been gradual Associate conditions include - diabetes obstructive sleep apnea No CAD - valve issues - mitral valve replacement 2019 dyslipidemia Yes hypertension Yes Laboratory results 07/28 , baseline - T 346 09/27 LH 25, T 240 10/28 T 290 - 02/27 T390 - 05/31 T 430, 11/28 T 460, Hct 44, PSA 0.3, 06/01 T 461 P 0.3, 11/29 T 412 P 0.3, 07/03 T 800 F 82 P 0.3, T 1230 F 84 H 51.6, 04/02 435, 11/01 462 58 0.3 46%, 05/03 760 0.3 48 Review labs in 6m PFSH Medical History Male hypogonadism Review of Systems Const Denies chills and Denies fever(s) Card Reports no additional complaints and Denies syncope Resp Denies cough GI Denies abdominal pain and Denies heartburn Reports as per HPI and Denies change in libido Neuro Denies syncope Psych Denies change in libido Endo Denies change in libido Physical Exam Const General: cooperative, healthy appearing, comfortable and no acute distress Orientation/consciousness: patient oriented x3 HEENT Face and sinus: Yes normal facial exam Mouth: moist mucous membranes Neck Neck: Yes normal visual inspection, Yes full ROM and Yes trachea midline Chest Chest palpation & inspection: normal inspection of the chest Resp Effort & Inspection: normal respiratory effort, able to speak in complete sentences and no respiratory distress GI Inspection: Yes normal to inspection Back/Spine/Pelvis Cervical Spine: normal cervical lordosis Thoracic/Lumbar Spine: thoracic and lumbar spine normal to inspection Skin General skin exam: no rashes or lesions noted Neuro General: patient oriented x3, gait normal, tone normal and moves all extremities Extrem General: Yes normal to inspection and Yes capillary refill normal Assessment & Plan Assessment & Plan (1) Erectile dysfunction: Code(s): N52.9 - Male erectile dysfunction, unspecified Category: Medical (2) Hypogonadism in male: Code(s): E29.1 - Testicular hypofunction Category: Medical Plan Six-month follow-up lab work office Orders: Orders Testosterone, Total 6 Months E29.1 - Testicular hypofunction Prostate Specific Antigen 6 Months E29.1 - Testicular hypofunction Complete Blood Count no Diff 6 Months E29.1 - Testicular hypofunction Patient Instructions: This note is constructed using voice recognition software. While every effort has been made to ensure accuracy public information relations manager errors may have been included. Imaging studies, laboratory and physical exam results were discussed and reviewed in detail. No major barriers to patient understanding were identified. An opportunity to ask questions regarding the treatment plan was provided. All questions were answered. The patient expressed understanding and agreement with the above treatment plan. The patient is aware they should contact our office by phone for worsening of their current condition or the appearance of new urologic symptoms. Compliance is encouraged with any medications and followup testing that is ordered. It is a privilege to participate in the urologic care of your patient. If you have any questions or concerns regarding treatment for the above conditions, or other urologic issues, please do not hesitate to contact me. The office telephone contact is [phone]. Sincerely, Dr Danish Gonzales MD, [facility] - Urology Compassionate Specialist Care for the Genitourinary System Coding Level of Care Code Est Pt Level 3 (29253) Complex EM visit Add On G2211 Diagnoses Erectile dysfunction N52.9 Hypogonadism in male E29.1
--- OUTSIDE RECORDS SUMMARY | 2024-10-28 10:53 | XMS_ITS | Patient Health Record ---
Author Organization [facility] [place] Address [address] [facility] [place] [address] Care Team Providers Care Wirer Street Light Name Role Phone Nina PAUL, Serjio Primary Care Provider Red Merritt Unavailable [phone] Allergies No Known Allergies Reason For Referral [...] primary osteoarthritis of the ankle and/or foot ([id number]) Primary osteoarthrit is, right ankle and foot (M19.071) Active confirmed Plan Of Treatment Pending Test Test Name Order Date X ray : Ankle, right 3V 03/25/2023 Insurance Providers Payer Name Payer Address Payer Phone Subscriber Number Group Number Insured Name Patient Relationship to Insured Coverage Start Date Coverage End Date Medicare National Govt Svcs Inc [address] [place] [address] [id number] Luan Martinez Self - patient is the insured [facility] Supp[facility] [address] [place] [address] [id number] Luan Martinez Self - patient is the insured Medical (General) History Medical History History ICD Code Heart disease High blood pressure Measles Chicken pox Replacement Heart Valves Surgical History Surgery Date(Month/Year) mitral valve surgery 06/30 Bone Spurs 12/23
== END 2024-10-28 11:28 | disposition home or self-care (01) ==
LOC: HO.HUSH 10:29
PROVIDERS: PCP Internal Medicine; Visit Provider Urology
DX: N52.9 Male erectile dysfunction, unspecified (principal); E29.1 Testicular hypofunction
CPT/HCPCS: 99213; G2211

== ENCOUNTER → 2024-10-28 10:28 | Outpatient (BNVA) | payer MEDICARE, OTHER, SELFPAY | PROVIDERS: PCP Internal Medicine; Visit Provider Urology | DX: N52.9 Male erectile dysfunction, unspecified (principal); E29.1 Testicular hypofunction | CPT/HCPCS: 99212 ==

== ENCOUNTER 2025-04-10 10:14 | Outpatient (REF) | payer MEDICARE, OTHER, SELFPAY ==
--- OUTSIDE RECORDS SUMMARY | 2025-04-10 12:41 | XMS_ITS | Encounter Summary ---
Author Organization [facility] Address [address] [facility] [address] [place] [address] Phone Care Team Providers Care Metal Control Coordinator Name Role Phone Serjio Wood MD Primary Care Provider Luis Rodas MD Unavailable [phone] Encounter Details Date Type Department Care Team (Late st Contact Info) Description 06/11/2020 Procedure Pass [facility] [place] PERIOPERATIVE DEPT [address] [place] [address] Social History Tobacco Use Types Packs/Day Years Used Date Smoking Tobacco: Former Alcohol Use Standard Drinks/Week Comments Not Currently 0 (1 standard drink = 0.6 oz pur e alcohol) Sex and Gender Information Value Date Recorded Sex Assigned at Male 04/20/2020 2:46 PM EST Legal Sex Male 9:54 PM EDT Gender Identity Male 04/20/2020 2:46 PM EST Sexual Orientation Straight 04/20/2020 2 :46 PM EST documented as of this encounter Plan of Treatment Not on file documented as of this encounter Visit Diagnoses Not on filedocumented in this encounter Additional Health Concerns Infection Onset Date Last Indicated Resolved Time CoV-Presumed 10/13/2021 10/13/2021 11/03/2021 1:21 AM EDT CoV-Risk Comment:Per Ambulatory Triage Form 10/21/2021 10/21/202110/21 9:34 AM EDT documented as of this encounter Care Teams Metal Control Coordinator Relationship Specialty Start Date End Date Serjio Wood MD [address] [place] [address] PCP - General Internal Medicine 04/20/20 Luis Rodas MD [address] [place] [address] Ultrasound Sonographer Cardiology 07/20/20 documented as of this encounter Additional Source Comments The information contained in this document represents components of the legal health record. It is not the complete legal health record.[facility]
--- OUTSIDE RECORDS SUMMARY | 2025-04-10 12:41 | XMS_ITS | Encounter Summary ---
Author Organization [facility] Address [address] [facility] [address] [place] [address] Phone Care Team Providers Care Panel Lay Up Worker Name Role Phone Serjio Wood MD Primary Care Provider Luis Rodas MD Unavailable [phone] Encounter Details Date Type Department Care Team (Late st Contact Info) Description 10/19/2023 Procedure Pass [facility] Cardiology [address] [facility], [address] [place] [address] Social History Tobacco Use Types Packs/Day Years Used Date Smoking Tobacco: Former Cigarettes 0.5 5 1 976 - 1981 Smokeless Tobacco: Never Alcohol Use Standard Drinks/Week Comments Yes 0 (1 standard drink = 0.6 oz pur e alcohol) 1-2 drinks every month Education Answer Date Recorded Are you interested in more education? Not on fito e 09/05/2022 Are you concerned about learning? Not on file 09/05/2022 No 09/05/2022 No 09/05/2022 Digital Access Answer Date Recorded No 10/03/2022 No 10/03/2022 Reliable internet access at home? Not on file 10/03/2022 Device with a working camera? Not on file Sex and Gender Information Value Date Recorded Sex Assigned at Male 04/20/2020 2:46 PM EST Legal Sex Male 9:54 PM EDT Gender Identity Male 04/20/2020 2:46 PM EST Sexual Orientation Straight 04/20/2020 2: 46 PM EST documented as of this encounter Plan of Treatment Not on file documented as of this encounter Visit Diagnoses Not on filedocumented in this encounter Care Teams Panel Lay Up Worker Relationship Specialty Start Date End Date Serjio Wood MD [address] [place] [address] PCP - General Internal Medicine 04/20/20 Luis Rodas MD [address] [place] [address] Production Cloth Cutter Cardiology 07/20/20 documented as of this encounter Additional Source Comments The information contained in this document represents components of the legal health record. It is not the complete legal health record.[facility]
--- OUTSIDE RECORDS SUMMARY | 2025-04-10 12:41 | XMS_ITS | Encounter Summary ---
Author Organization [facility] Address [address] [place] [address] Phone Care Team Providers Care Industrial Order Clerk Name Role Phone Serjio Wood MD Primary Care Provider Luis Rodas MD Unavailable [phone] Encounter Details Date Type Department Care Team (Late st Contact Info) Description 03/26/2023 Procedure Pass [facility] [address] [facility], 5th Floor, [address] [place] [address] Social History Tobacco Use Types Packs/Day Years [...] on filedocumented in this encounter Care Teams Industrial Order Clerk Relationship Specialty Start Date End Date Serjio Wood MD [address] [place] [address] PCP - General Internal Medicine 04/20/20 Luis Rodas MD [address] [place] [address] Cleat Feeder Cardiology 07/20/20 documented as of this encounter Additional Source Comments The information contained in this document represents components of the legal health record. It is not the complete legal health record.[facility]
--- OUTSIDE RECORDS SUMMARY | 2025-04-10 12:41 | XMS_ITS | Encounter Summary ---
Author Organization [facility] Address [address] [facility] [address] [place] [address] Phone Care Team Providers Care Insurance Account Representative Name Role Phone Serjio Wood MD Primary Care Provider Luis Rodas MD Unavailable [phone] Encounter Details Date Type Department Care Team (Late st Contact Info) Description 05/02/2024 Procedure Pass [facility] Cardiology [address] [facility], [address] [place] [address] Social History Tobacco Use Types Packs/Day Years [...] on filedocumented in this encounter Care Teams Insurance Account Representative Relationship Specialty Start Date End Date Serjio Wood MD [address] [place] [address] PCP - General Internal Medicine 04/20/20 Luis Rodas MD [address] [place] [address] Flight Readiness Technician Cardiology 07/20/20 documented as of this encounter Additional Source Comments The information contained in this document represents components of the legal health record. It is not the complete legal health record.[facility]
--- OUTSIDE RECORDS SUMMARY | 2025-04-10 12:41 | XMS_ITS | Encounter Summary ---
Author Organization [facility] Address [address] [facility] [place] [address] Phone Care Team Providers Care Craniologist Name Role Phone Serjio Wood MD Primary Care Provider Luis Rodas MD Unavailable [phone] Encounter Details Date Type Department Care Team (Late st Contact Info) Description 07/31/2021 Procedure Pass [facility], [place] [address] [facility], 2nd Floor, [address] [place] [address] Social History Tobacco Use Types Packs/Day Years Used Date Smoking Tobacco: Former Cigarettes 0.5 5 1 976 - 1981 Smokeless Tobacco: Never Alcohol Use Standard Drinks/Week Comments Yes 0 (1 standard drink = 0.6 oz pur e alcohol) 1-2 drinks every month Sex and Gender Information Value Date Recorded [...] documented as of this encounter Care Teams Craniologist Relationship Specialty Start Date End Date Serjio Wood MD [address] [place] [address] PCP - General Internal Medicine 04/20/20 Luis Rodas MD [address] [place] [address] Career Technology Teacher Cardiology 07/20/20 documented as of this encounter Additional Source Comments The information contained in this document represents components of the legal health record. It is not the complete legal health record.[facility]
--- OUTSIDE RECORDS SUMMARY | 2025-04-10 12:41 | XMS_ITS | Encounter Summary ---
Author Organization [facility] Address [address] [place] [address] Phone Care Team Providers Care Dairy Technician Name Role Phone Serjio Wood MD Primary Care Provider Luis Rodas MD Unavailable [phone] Encounter Details Date Type Department Care Team (Late st Contact Info) Description 05/15/2020 Procedure Pass [facility] [place] [address] [facility], 2nd Floor, [address] [place] [address] Social History Tobacco Use Types Packs/Day Years [...] documented as of this encounter Care Teams Dairy Technician Relationship Specialty Start Date End Date Serjio Wood MD [address] [address] PCP - General Internal Medicine 04/20/20 Luis Rodas MD [address] [place] [address] Is Consultant Cardiology 07/20/20 documented as of this encounter Additional Source Comments The information contained in this document represents components of the legal health record. It is not the complete legal health record.[facility]
--- OUTSIDE RECORDS SUMMARY | 2025-04-10 12:41 | XMS_ITS | Encounter Summary ---
Author Organization [facility] Address [address] [place] [address] Phone Care Team Providers Care Content Director Name Role Phone Serjio Wood MD Primary Care Provider Luis Rodas MD Unavailable [phone] Encounter Details Date Type Department Care Team (Late st Contact Info) Description 07/31/2021 Procedure Pass [facility] Cardiac Echo [address] [place] [address] Social History Tobacco Use Types Packs/Day Years [...] documented as of this encounter Care Teams Content Director Relationship Specialty Start Date End Date Serjio Wood MD [address] [place] [address] PCP - General Internal Medicine 04/20/20 Luis Rodas MD [address] [place] [address] Program Director/Air Personality Cardiology 07/20/20 documented as of this encounter Additional Source Comments The information contained in this document represents components of the legal health record. It is not the complete legal health record.[facility]
--- OUTSIDE RECORDS SUMMARY | 2025-04-10 12:41 | XMS_ITS | Encounter Summary ---
Author Organization [facility] Address [address] [address] Phone Care Team Providers Care Food Manager Name Role Phone Serjio Wood MD Primary Care Provider Luis Rodas MD Unavailable [phone] Encounter Details Date Type Department Care Team (Late st Contact Info) Description 06/14/2020 Procedure Pass [facility] Cardiac US [address] [place] [address] Social History Tobacco Use Types Packs/Day Years Used Date Smoking Tobacco: Former Cigarettes Q uit: 1981 Smokeless Tobacco: Never Alcohol Use Standard Drinks/Week Comments Not Currently 0 (1 standard drink = 0.6 oz pur e alcohol) Sex and Gender Information Value Date Recorded Sex Assigned at Male 04/20/2020 2:46 PM EST Legal Sex Male 9:54 PM EDT Gender Identity Male 04/20/2020 2:46 PM EST Sexual Orientation Straight 04/20/2020 2: 46 PM EST documented as of this encounter Functional Status * Calculated C-SSRS Risk Score (Lifetime/Recent) Answer Date of Assessment Author No Risk Indicated 06/15/2020 6:00 AM Domenica Rooney RN * [place] Suicide Severity Rating Scale (Screener/Recent Self-Report) Question Answer Date of Assessment Author 1. Wish to be (Past 1 Month) No 06/15/2020 6:00 AM Domenica Rooney RN 2. Non-Specific Active Suici anita Thoughts (Past 1 Month) No 06/15/2020 6:00 AM Devante Rooney RN 6. Suicidal Behavior (Lifetime) No 1 6:00 AM Domenica Rooney RN documented as of this encounter Plan of Treatment Not on file documented as of this encounter Visit Diagnoses Not on filedocumented in this encounter Additional Health Concerns Infection Onset Date Last Indicated Resolved Time CoV-Presumed 10/13/2021 10/13/2021 11/03/2021 1:21 AM EDT CoV-Risk Comment:Per Ambulatory Triage Form 10/21/2021 10/21/202110/21 9:34 AM EDT documented as of this encounter Care Teams Food Manager Relationship Specialty Start Date End Date Serjio Wood MD [address] [place] [address] PCP - General Internal Medicine 04/20/20 Luis Rodas MD [address] [place] [address] Salesperson Fashion Accessories Cardiology 07/20/20 documented as of this encounter Additional Source Comments The information contained in this document represents components of the legal health record. It is not the complete legal health record.[facility]
--- OUTSIDE RECORDS SUMMARY | 2025-04-10 12:41 | XMS_ITS | Encounter Summary ---
Author Organization [facility] Address [address] [place] [address] Phone Care Team Providers Care Hris Developer Name Role Phone Serjio Wood MD Primary Care Provider Luis Rodas MD Unavailable [phone] Encounter Details Date Type Department Care Team (Late st Contact Info) Description 03/03/2022 Procedure Pass [facility] [place] [address] [place] [address] Social History Tobacco Use Types Packs/Day Years [...] on filedocumented in this encounter Care Teams Hris Developer Relationship Specialty Start Date End Date Serjio Wood MD [address] [place] [address] PCP - General Internal Medicine 04/20/20 Luis Rodas MD [address] [place] [address] Casino Dealer Cardiology 07/20/20 documented as of this encounter Additional Source Comments The information contained in this document represents components of the legal health record. It is not the complete legal health record.[facility]
--- OUTSIDE RECORDS SUMMARY | 2025-04-10 12:41 | XMS_ITS | Encounter Summary ---
Author Organization [facility] Address [address] [facility] [address] [place] [address] Phone Care Team Providers Care Chemical Radiation Technician Name Role Phone Serjio Wood MD Primary Care Provider Luis Rodas MD Unavailable [phone] Encounter Details Date Type Department Care Team (Late st Contact Info) Description 06/04/2021 Procedure Pass [facility] - [facility] [address] [facility], 6th [place] [address] Social History Tobacco Use Types Packs/Day Years [...] documented as of this encounter Care Teams Chemical Radiation Technician Relationship Specialty Start Date End Date Serjio Wodo MD [address] [place] [address] PCP - General Internal Medicine 04/20/20 Luis Rodas MD [address] [place] [address] Extraction Machine Operator Cardiology 07/20/20 documented as of this encounter Additional Source Comments The information contained in this document represents components of the legal health record. It is not the complete legal health record.[facility]
--- OUTSIDE RECORDS SUMMARY | 2025-04-10 12:41 | XMS_ITS | Clinical Summary ---
Author Organization [facility] Address [address] [address] Phone Care Team Providers Care Television Announcer Name Role Phone Serjio Wood MD Primary Care Provider Luis Rodas MD Unavailable [phone] Allergies No known active allergies Medications Ca cit-D3-mag#11-zi xy-adty-psd-bor (CALTRATE 600+D) 600 mg calcium- 800 unit-50 mg Tab Take 1 tablet by mouth daily. Active testosterone (ANDROGEL) 20.25 mg/1.25 gram (1.62 %) transdermal gel pump Apply 50 mg of testosterone topically daily. 04/22/20 21 Active aspirin 81 mg chewable tablet Take 81 mg by mouth daily. Active therapeutic multivitamin tablet Take 1 tablet by mouth daily. Active glucosamine-liliana droitin 500-400 mg Cap Take 2 capsules by mouth daily. Active flaxseed oiL 1,000 mg Cap Take 1,000 mg by mouth daily. Active magnesium oxide (MAG-OX) 400 mg (241.3 mg elemental) tablet Take 400 mg by mouth daily. Active JARDIANCE 10 mg tabletIndication s:Chronic systolic heart failure TAKE 1 TABLET(10 MG) BY MOUTH DAILY 90 tablet 3 03/16/20 24 Active ENTRESTO 97-103 mg per tabletIndication s:Chronic systolic heart failure TAKE 1 TABLET BY MOUTH TWICE DAILY 60 tablet 11 10/11/19 25 Active eplerenone (INSPRA) 25 MG tabletIndication s:Chronic systolic heart failure Take 1 tablet (25 mg total) by mouth daily. 90 tablet 3 11/22/19 25 Active metoprolol succinate (TOPROL-XL) 50 MG 24 hr tabletIndication s:Chronic systolic heart failure Take 1 tablet (50 mg total) by mouth 2 (two) times a day. 180 tablet 3 02/04/20 25 Active atorvastatin (LIPITOR) 40 MG tablet Take 40 mg by mouth daily. 025 Discontin ued(No longer taking) Active Problems Problem Noted Date Diagnosed Date Iron deficiency anemia 07/31/2023 History of mitral valve repl acement with bioprosthetic valve 06/04/2021 Hyperlipidemia 06/04/2021 Hypertension 06/04/2021 Systolic heart failure 06/04/2021 Mitral valve prolapse 06/04/2021 Mitral valve prolapse 06/14/2020 Encounters Date Type Department Care Team Description 03/27/2025 3:31 PM EST - 03/27/2025 11:59 PM EST Hospital En[place] [facility] [address] [facility], 2nd Floor, [address] [place] [address] Chay Zelaya MD Discharge Disposition: Home or Self Care 03/27/2025 2:22 PM EST - 03/27/2025 3:30 PM EST Hospital Encounter [facility] [address] [facility], [address] [place] [address] Chay Zelaya MD Discharge Disposition: Home or Self Care 02/01/2025 Refill [facility] [address] [facility], 5th Floor, [address] [place] [address] Renetta Rajput FNP Medication Refill 01/13/2025 3:30 PM EDT Office Visit [facility] [address] [facility], 5th [address], [address] [place] [address] Chay Zelaya MD Mitral valve prolapse (Primary Dx); Chronic systolic heart failure; History of mitral valve replacement with bioprosthetic valve; Primary hypertension; Pure hypercholesterolemia from Last 3 Months Immunizations Immunization Administration Dates Next Due COVID-19 (Pre-03/02) Pfizer Vaccine, mRNA, PF 08/25/2020,08/02/2020 Hep A-Hep B 02/15/2019,08/25/2018,07/28/2018 INFLUENZA, SPLIT VIRUS, TRIV ALENT W/ PRESERVATIVE IM 01/18/2020 Td (adult),2 Lf Tetanus Toxo id, PF, Adsorbed 10/10/2017 Typhoid, ViCPs 07/28/2018 Zoster recombinant 09/26/2020 Social History Tobacco Use Types Packs/Day Years Used Date Smoking Tobacco: Former Cigarettes 0.5 5 1 976 - 1981 Smokeless Tobacco: Never Tobacco Cessation:Counseling Given: Not Answered Alcohol Use Standard Drinks/Week Comments Yes 0 [...] Orientation Straight 04/20/2020 2: 46 PM EST Last Filed Vital Signs Vital Sign Reading Time Taken Comments Blood Pressure 150/89 01/13/2025 3:17 PM EDT Pulse 79 01/13/2025 3:17 PM EDT Temperature 36.4 C (97.6 F) 06/17/2021 7:02 AM EST Respiratory Rate 16 06/19/2020 7:50 AM EST Oxygen Saturation 95% 06/18/2020 11:48 PM EST Inhaled Oxygen Concentration 96% 06/19/2020 7 :50 AM EST Weight 86.6 kg (191 lb) 01/13/2025 3:17 PM EDT Height 185.4 cm (6' 1 ) 09/08/2022 1:41 PM EDT Body Mass Index 25.2 09/08/2022 1:41 PM EDT Plan of Treatment Health Maintenance Due Date Last Done Comments DEPRESSION SCREENING 1968 COLOGUARD 2001 COLONOSCOPY 2001 COLORECTAL CANCER SCREENING 2001 FIT TEST 2001 FOBT 2001 SIGMOIDOSCOPY 2001 VIRTUAL COLONOSCOPY 2001 RSV VACCINE (1 - Risk 50-74 years 1-dose series) 2006 ABDOMINAL AORTIC ANEURYSM (AAA) SCREENING 2021 INFLUENZA VACCINE (#1) 2024 , 04/27/2023, 02/21/2022, Additional history exists COVID-19 VACCINE ( - 2024- season) 2025 04/12/2021, 08/25/2020, 08/02/2020 BLOOD PRESSURE 07/13/2025 01/13/2025 POTASSIUM LEVEL 07/18/2025 07/18/2024, 09/08, 03/13/2022, Additional history exists SCREENING FOR DIABETES 07/19/2027 07/18/2024 Adult Td,Tdap Booster 10/11/2027 10/10/2017 LIPID PANEL 07/18/2029 07/18/2024, 03/13/2022 HEPATITIS A VACCINES Aged Out 02/15/2019, 08/25/2018, 07/28/2018 No longer eligible based on patient's age to complete this topic ZOSTER VACCINES Completed 02/14/2021, 09/26/2020 HEPATITIS C SCREENING Completed 06/13/2021 PNEUMOCOCCAL VACCINES (50+ years) Completed 04/27/2023, 07/16/2021 SMOKING STATUS SCREENING (Once After 26 Yrs) Completed 05/02/2024 HIB VACCINES Aged Out No longer eligi ble based on patient's age to complete this topic MENINGOCOCCAL VACCINES (ACWY) Aged Out No longer eligible based on patient's age to complete this topic MENINGOCOCCAL VACCINES (B) Aged Out N o longer eligible based on patient's age to complete this topic Medical Devices Implanted Type Area Package Sorter Device Identifier Shelf Expiration Date Model / Serial / Lot Valve Stent 33mm Mitral Bioprosthesis Tissue Flexfit Biocor - [id number] Implanted:Qty: 1 on 06/14/2020 by Olivier Gonzalez MD at [facility] [employer] 12/15/2023 [id number] / [id number] / Description:MRI SAFETY INFOR DARIA Non-clinical testing has demonstrated that the Biocor and Epic heart valves are MR Conditional. Patients can be scanned safely immediately after implantation under the following conditions: Static magnetic field of 1.5 kaity (1.5T) or 3.0 kaity (3.0T). Maximum spatial gradient field less than or equal to 3,000 Gauss/cm (30T/m). Normal Operating Mode: Maximum whole-body specific absorption rate (KYM) of: 2.0 W/kg for 15 minutes of scanning in Normal Operating Mode at 1.5T. 2.0 W/kg for 15 minutes of scanning in Normal Operating Mode at 3.0T. Procedures Procedure Name Priority Date/Time Associated Diagnosis Comments POCT HEMOGLOBIN Routine 03/27/2025 4:03 PM EST CARDIOPULMONARY EXERCISE TEST PFT Routine 03/27/2025 3:37 PM EST Chronic systolic heart failure ECG 12-LEAD Routine 01/13/2025 3:23 PM EDT Mitral valve prolapse LIPID PANEL Routine 07/18/2024 8:39 AM EDT Chronic systolic heart failure BASIC METABOLIC PANEL (BMP) Routine 07/18/2024 8:39 AM EDT Chronic systolic heart failure HEPATITIS C ANTIBODY, QUALITATIVE Routine 06/13/2021 10:41 AM EST Need for hepatitis C screening test from Last 3 Months or Most Recently Relevant to Health Maintenance Results * POCT Hemoglobin (03/27/2025 4:03 PM EST) Hemoglobin 16.2 13.5 - 17.5 g/dL 03/27/2025 4:05 PM EST [facility] POCT SPECIAL FUNCTION LAB GROUPS 1 & 2 Blood (Blood) 03/27/2025 4:0 3 PM EST 03/27/2025 4:05 PM EST us Chay Zelaya MD LAB POCT DOCKED DEVICE UNSOL ICTED RESULTS Final Result [facility] POCT SPECIAL FUNCTION LAB GROUPS 1 & [address] [place] [id number] * Cardiopulmonary Exercise Test ([facility] Only) (03/27/2025 3:37 PM EST) Anatomical Region Laterality Modality Other 03/27/2025 3:37 PM EST Chay Zelaya MD PFT ORDERABLES Final Result * ECG 12-LEAD (01/13/2025 3:23 PM EDT) Systolic Blood Pressure [facility] Diastolic Blood Pressure [facility] Ventricular Rate EKG/MIN 79 BPM [facility] Atrial Rate 79 BPM [facility] SC Interval 200 ms [facility] QRS Duration 142 ms [facility] QT Interval 402 ms [facility] QTC Interval 460 ms [facility] P [place] 59 degrees [facility] R Wave [place] -70 degrees [facility] T Wave [place] 81 degrees [facility] 01/13/2025 3:23 PM EDT 01/14/2025 6:40 PM EDT Narrative [facility] - 01/14/2025 6:40 PM EDT NORMAL SINUS RHYTHM LEFT BUNDLE BRANCH BLOCK ABNORMAL ECG WHEN COMPARED WITH ECG OF 02-May-2024 14:49, NO SIGNIFICANT CHANGE WAS FOUND Chay Zelaya MD ECG ORDERABLES Final Result [facility] * (ABNORMAL) Lipid panel (07/18/2024 8:39 AM EDT) HDL 55 mg/dL [facility] Comment: Interpretation <40 mg/dL: Low HDL cholesterol (major risk factor for CHD) Greater than or equal to 60 mg/dL: High HDL cholesterol ( negative risk factor for CHD) HDL - cholesterol is affected by a number of factors, e.g. smoking, excerise, hormones, sex and age. CHOLESTEROL 160 0 - 240 mg/dL [facility] TRIGLYCERIDES 114 30 - 160 mg/dL [facility] LDL 82 50 - 129 mg/dL [facility] Comment: LDL levels in terms of risk for coronary heart disease: <100 mg/dL: Optimal 100-129 mg/dL: Near or above optimal 130-159 mg/dL: Borderline high 160-189 mg/dL: High >190 mg/dL: Very High CARDIAC RISK RATIO 2.9(L) 3.4 - 5.0 C [facility] Blood 07/18/2024 8:39 AM EDT 07/18/2024 8:41 AM EDT us Renetta Anabela [facility] LAB BLOOD BKR ORDERABL ES Final Result Performing Organization Address City/[facility]/ZIP Co de Phone Number [address] [address] * (ABNORMAL) Basic metabolic panel (07/18/2024 8:39 AM EDT) SODIUM 140 133 - 146 mmol/L [facility] CHLORIDE 105 96 - 108 mmol/L [facility] POTASSIUM 4.5 3.3 - 5.1 mmol/L [facility] CO2 27 21 - 35 mmol/L [facility] BUN 31(H) 6 - 19 mg/dL [facility] CREATININE 1.00 0.5 - 1.5 mg/dL [facility] GLUCOSE 104(H) 70 - 99 mg/dL [facility] CALCIUM 8.8 8.4 - 10.3 mg/dL [facility] EGFR 82 >59 mL/min/1.7 3m2 [facility] Comment:Estimated glomerular filtration rate calculated using the CKD-EPI refit equation. ANION GAP 13 10 - 20 mmol/L [facility] Blood 07/18/2024 8:39 AM EDT 07/18/2024 8:41 AM EDT us Renetta Ann [facility] LAB BLOOD BKR ORDERABL ES Final Result Performing Organization Address City/[facility]/ZIP Co de Phone Number [address] [address] * Hepatitis C antibody, qualitative (06/13/2021 10:41 AM EST) HCV NON-REACTIV E NON-REACTI VE [facility] Blood 06/13/2021 10:4 1 AM EST 06/13/2021 10:45 AM EST us Otis Trammell MD LAB BLOOD BKR ORDERABLES Final Result [address] [address] from Last 3 Months or Most Recently Relevant to Health Maintenance Insurance MEDICARE PART A & B GENERIC COMMERCIAL MEDICARE PART A & B GENERIC COMMERCIAL MEDICARE PART A & B GENERIC COMMERCIAL MEDICARE PART A & B GENERIC COMMERCIAL MEDICARE PART A & B GENERIC COMMERCIAL MEDICARE PART A & B GENERIC COMMERCIAL MEDICARE PART A & B GENERIC COMMERCIAL MEDICARE PART A & B GENERIC COMMERCIAL MEDICARE PART A & B GENERIC COMMERCIAL Advance Directives For more information, please contact: [phone] (9AM - 5PM [facility], Thursday-Thursday) Documents on File Type Date Recorded 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 Expl anation Healthcare Proxy 05/30/2020 1:38 PM * Full Code (Latest Code Status on File) Date Activated Date Inactivated Comments 06/15/2020 12:01 AM Question Answer Comments Code Status Confirmed With: PatientOther (specif y below) Code Status Communicated To: Inpatient Attending Care Teams Television Announcer Relationship Specialty Start Date End Date Serjio Wood MD [address] [place] [phone] PCP - General Internal Medicine 04/20/20 Luis Rodas MD [address] [place] [id number] Textile Science Technician Cardiology 07/20/20 Additional Source Comments The information contained in this document represents components of the legal health record. It is not the complete legal health record.[facility]
--- OUTSIDE RECORDS SUMMARY | 2025-04-10 12:41 | XMS_ITS | Encounter Summary ---
Author Organization [facility] Address [address] [address] Phone Care Team Providers Care Stained Glass Joiner Name Role Phone Serjio Wood MD Primary Care Provider Luis Rodas MD Unavailable [phone] Encounter Details Date Type Department Care Team (Late st Contact Info) Description 06/14/2020 Procedure Pass [facility] [address] [place] [address] Social History Tobacco Use Types Packs/Day Years [...] 06/15/2020 6:00 AM Domenica Rooney RN * [place] Suicide Severity Rating Scale (Screener/Recent Self-Report) Question [...] documented as of this encounter Care Teams Stained Glass Joiner Relationship Specialty Start Date End Date Serjio Wood MD [address] [place] [id number] PCP - General Internal Medicine 04/20/20 Luis Rodas MD [address] [place] [id number] Internal Medicine Nurse Cardiology 07/20/20 documented as of this encounter Additional Source Comments The information contained in this document represents components of the legal health record. It is not the complete legal health record.[facility]
[2025-04-10 13:34] LABS: Hematocrit 47.4 % (42.0-52.0); Hemoglobin 15.9 g/dl (14.0-18.0); Mean Corpuscular HGB Conc 33.5 g/dl (31.0-36.0); Mean Corpuscular Hemoglobin 29.5 pg (27.0-33.0); Mean Corpuscular Volume 87.9 fL (80.0-98.0); NRBC Abs Auto 0.000 X10*3/uL (0.0-0.012); NRBC Pct Auto 0.0 /100WBC (0.0-0.2); Platelet Count 229 X10*3/uL (160-400); Red Blood Count 5.39 X10*6/uL (4.60-5.80); White Blood Count 7.1 X10*3/uL (4.8-10.8)
[2025-04-10 14:16] LABS: Prostate Specific Antigen 0.26 ng/mL (<0.05-4.0)
== END 2025-04-10 10:15 | disposition home or self-care (01) ==
LOC: HO.HMGCLDS 10:14
PROVIDERS: PCP Internal Medicine; Visit Provider Urology
DX: E29.1 Testicular hypofunction (principal); Z12.5 Encounter for screening for malignant neoplasm of prostate
CPT/HCPCS: 36415; 84153; 84403; 85027

== ENCOUNTER 2025-04-25 09:43 | Outpatient (AMB) | payer MEDICARE, OTHER, SELFPAY ==
--- OUTSIDE RECORDS SUMMARY | 2025-04-21 13:30 | XMS_ITS | Encounter Summary ---
Author Organization [facility] Address [address] [place] [address] Phone Care Team Providers Care Loan Counselor Name Role Phone Serjio Wood MD Primary Care Provider Luis Rodas MD Unavailable [phone] Encounter Details Date Type Department Care Team (Latest Contact Info) Description 04/21/2025 1:30 PM EST Office Visit [facility] [place] [facility] & [place] [address] [facility], 5th Floor, [address] [place] [address] Chay Zelaya MD [address] [facility] [address] [place] [address] [email or web address] Chronic systolic heart failure (Primary Dx); NICM (nonischemic cardiomyopathy); Mitral valve prolapse; History of mitral valve replacement with bioprosthetic valve; Pure hypercholesterolemia; IVCD (intraventricular conduction defect) Social History Tobacco Use Types Packs/Day Years [...] PM EST documented as of this encounter Last Filed Vital Signs Vital Sign Reading Time Taken Comments Blood Pressure 136/85 04/21/2025 1:30 PM EST Pulse 81 04/21/2025 1:30 PM EST Temperature - - Respiratory Rate - - Oxygen Saturation - - Inhaled Oxygen Concentration - - Weight 90.3 kg (199 lb) 04/21/2025 1:30 PM EST Height - - Body Mass Index 26.25 09/08/2022 1:41 PM EDT documented in this encounter Progress Notes * Chay Zelaya MD - 04/21/2025 1:30 PM EST Images from the original note were not included. Heart failure cardiology Office Visit History of Present Illness: Luan Higuera is a 70 y.o. man with HFrEF (LVEF 20-25% in March 2021), mitral valve prolapse c/b mitral regurgitation s/p bioprosthetic MV replacement (33mm Flexfit Biocor) on 06/14/2020, HTN, HLD,former tobacco use, and MGUS who is seen today for follow up. He has previously undergone cardiac MR on 07/23/2021 showing an LVEF of 27%, RVEF 44%, and no definitive LGE to suggest myocarditis/sarcoidosis/amyloidosis or other infiltrative/inflammatory etiology.SFLC were previously negative as was his fat biopsy. He most recently had a CT scan which showed stable pulmonary nodules (5 mm left lower lobe nodules. Additional solid pulmonary nodules are presentmeasuring up to 3 mm as seen in the right lung), pericardial calcification. No specific f/u was recommended. His most recent echo on 01/23 showed an EF of 39% with more prominent inferior WMA, LVEDD of 62mm dilated RV with normal function, good MVR function, minimal TR. Seen in February 2022 with minimal symptoms at the time and only occurring when he was performing aggressively strenuous exercise. He was remaining quite active at the time. He was quite admitted in improving his heart function overall. In September 2022 he was seen by me. He was feeling well without any significant issues. At that time his CPET showed a peak VO2 of 17.6 mill per kilogram per minute about 68% predicted consistent with moderate reduced exercise capacity. His medications were adjusted and that appointment will reduction of metoprolol 250 mg daily and switching to eplerenone 25 mg daily. Today: Following up in clinic today. Overall doing well without any significant imitations. He does not have any issues with flat surface. He does not feel lightheaded or dizzy. He does get somewhat short of breath when going uphill but this has been at his baseline. He is getting about 8 hours of sleep every day but sometimes is difficult to get out of bed. His weight has somewhat increased to 199 lbs.. No worsening heart failure symptoms. Has been able to stay out of the hospital without any hospitalizations. States that he has recently stopped rosuvastatin due to lower extremities tremors and that he has been sleeping much better. He had a CPET earlier this year that has shown increased PVO2 compared to his previous one. Blood pressure today at 136/85 millimeters mercury with a heart rate minute. Past Medical History: Diagnosis Date Heart failure with reduced ejection fraction Hyperlipidemia Hypertensive disorder Mitral valve disease Mitral valve prolapse Nonischemic cardiomyopathy Past Surgical History: Procedure Laterality Date CARDIAC SURGERY MITRAL VALVE REPLACEMENT REPLACE MITRAL VALVE( tissue) N/A 06/14/2020 Performed by Olivier Gonzalez MD at [facility] [place] shoulder bone spurs No Known Allergies No family history on file. No known family history of cardiovascular disease. Social History: Social History Social History Narrative Lives at home alone. Retired. Formerly worked for [employer]. Remains active. Goes hiking 1-2 times per week. Goes to the gym 2-3 times per week. Social History Tobacco Use Smoking status: Former Current packs/day: 0.00 Average packs/day: 0.5 packs/day for 5.0 years (2.5 ttl pk-yrs) Types: Cigarettes Start date: 1975 Quit date: 1980 Years since quittin.9 Smokeless tobacco: Never Substance Use Topics Alcohol use: Yes Comment: 1-2 drinks every month Review of Systems: As noted per HPI, otherwise negative. A full 12 point review of systems was obtained. Vital signs: BP 136/85 Pulse 81 Wt 90.3 kg (199 lb) BMI 26.25 kg/m?? Wt Readings from Last 3 Encounters: 04/21/25 90.3 kg (199 lb) 01/13/25 86.6 kg (191 lb) 05/02/24 88 kg (194 lb) Physical Exam: Gen: No acute distress, sitting comfortably on examination table HEENT: PERRL, EOMI, mucous membranes moist Neck: JVP ~7-8cm, no carotid bruits CV: normal S1 and S2, regular rate and rhythm, no murmurs/rubs/gallops Pulm: lungs clear to auscultation bilaterally Abd: soft, nontender, nondistended, normal bowel sounds Ext: no peripheral edema, warm and well-perfused Neuro: Alert and oriented to person, place, time; normal affect Data: Lab Results Component Value Date NA 141 04/21/2025 K 4.8 04/21/2025 CL 104 04/21/2025 CO2 25 04/21/2025 BUN 36 (H) 04/21/2025 CRE 1.45 (H) 04/21/2025 GLU 106 (H) 04/21/2025 Lab Results Component Value Date TP 6.9 06/04/2021 TP 7.4 06/04/2021 ALB 4.7 06/04/2021 GLOB 2.7 06/04/2021 SGOT 28 06/04/2021 SGPT 22 06/04/2021 ALKP 70 06/04/2021 TBILI 0.6 06/04/2021 DBILI 0.2 06/15/2020 Lab Results Component Value Date NTBNP 193 (H) 09/24/2022 NTBNP 160 (H) 03/13/2022 Lab Results Component Value Date CHOL 160 07/18/2024 HDL 55 07/18/2024 LDL 82 07/18/2024 TRIG 114 07/18/2024 CHOLHDL 2.9 (L) 07/18/2024 HEMOGLOBIN A1C Date Value Ref Range Status 05/30/2020 5.9 4.3 - 6.4 % Final SCREENING PANEL: TSH Date Value Ref Range Status 06/04/2021 1.48 0.40 - 5.00 uIU/mL Final Lab Results Component Value Date WBC 6.87 07/18/2024 HGB 16.7 07/18/2024 HCT 48.6 07/18/2024 PLT 237 07/18/2024 EKG: I have personally reviewed the EKG from 04/21/2025 which shows normal sinus rhythm at a heart rate of 81 bpm, IVCD Other Results: CPET 11..25 1. The peak RER of 1.18 indicates that this was a maximum effort study. 2. The peak VO2 of 18.7 ml/kg/min (80% predicted) indicates low normal exercise capacity. The VAT occurs normally at 58% predicted peak VO2. a. The central cardiac response to exercise is abnormal based on hypertensive response (144/82 -> 214/74) and delayed HR recovery post-exercise. There is normal chronotropic response during exercise and normal oxygen pulse. b. The pulmonary vascualr response to exercise is abnormal based on elevated VE/VCO2. There is normal augmenation of the PETCO2 at VAT and normal oxygen saturation throughout exercise. c. There is no evidence of pulmonary mechanical contribution to exercise limitaiton based on breathing reserve of of 28% at peak exercise. 3. Compared to prior [facility] CPET performed on 08/11/22, peak VO2 has improved (17.6 ml/kg/min -> 18.7ml/kg/min ; 1.56 L/min -> 1.66 L/min) and VE/VCO2 has decreased (35.9 -> 33.9). CONCLUSION: Low normal exercise capacity with hypertensive response. Improved from prior. TTE on 12/2024 LVEDD of 57 mm; EF 33%,bioprosthetic MVR with normal gradients, normal RV function and size, normalsided filling pressures, mild TR TTE in 01/2024: LVEDD of 61 mm, ejection fraction of 34%, bioprosthetic MVR with normal gradients, normal RV function and size, normal sided filling pressures, mild TR, TTE 09/08/2022. LVEDD of 58 mm, ejection fraction 36%, bioprosthetic MVR with normal mean gradient and trace MR, normal RV function and size, normal right-sided filling pressures, trace tricuspid regurgitation, no pericardial effusion. Cardiopulmonary exercise test 08/28/2022 1. EFFORT OF STUDY: The combination of peak RER > 1.0 (RER = 1.19) and the post- exercise venous lactate of 4.5 mM (normal resting lactate 0.5-2.2 mM) indicates that this was a maximum effort study despite the factthat the peak heart rate did not reach >85% of age-predicted maximum in the setting of zuri blockade. 2. EXERCISE CAPACITY: The peak VO2 of 17.6 ml/kg/min (68% of predicted) indicates moderately reduced exercise capacity. There was a normal ventilatory anaerobic threshold indicating an appropriate response to submaximal exercise. 3. CARDIOVASCULAR RESPONSE: There was mild chronotropic incompetence (peak HR was 81% of predicted, chronotropic index 0.57, with >0.62 being normal on zuri blockade) with abnormal HR recovery. There was however evidence of cardiac reserve capacity based on a normal peak oxygen pulse (85% of predicted) and normal SBP augmentation with exercise. Aerobic efficiency was normal. The oxygen pulse represents the (stroke volume x CavO2) product, although the relative contributions of the two components cannot be parsed out without invasive hemodynamic assessment. 4. RV-PULMONARY VASCULAR RESPONSE: The patient had indirect evidence of an abnormal RV-pulmonary vascular response to exercise based on impaired ventilatory efficiency (elevated VE/VCO2 slope) and impairedaugmentation of PETCO2 at the VAT. However, the normal oxygen saturations at rest and with exercise argue against asevere burden of pulmonary vascular disease. 5. HEMOGLOBIN: The patient does not have anemia (Hb 18.6 g/dL). 6. PULMONARY MECHANICS: There was no evidence of a pulmonary mechanical limit to exercise based on a breathing reserve of 28% at peak exercise. 7. There are no prior [facility] CPETs 01/2022 TTE: LVEF of 39%; LVEDD of 62 mm, IVS 8 mm, PWT 12, dilated RV with normal function, MVR with normal function, trace MR, no MS, mild TR 03/2021 TTE ([facility]) Per patient report: LVEF 20-25%, stable MV function. 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; severe MR (anteriorly-directed) No pericardial effusion Post-MVR: LV dilated, low-normal LVSF, no RWMAs RV normal No thrombus #33 SJM bioprosthetic valve; PG 13/MG 5 (HR 86bpm); no paravalvular leak, trace MR Mild TR Mild PI No pericardial effusion 07/23/2021 Cardiac MR: Moderately dilated LV with LVEF 27% Normal RV size with borderline low function Dilated LA (up to 44mm) Post-MVR with well-positioned valve and trace central regurgitation Small area of subendocardial LGE in basal inferolateral segment suggesting focal subendocardial IN Subtle linear mid-wall LGE in basal inferior, inferolateral, and anterolateral segments adjacent tomitral annulus with focal patchy low-intensity LGE in mid- inferior segment likely secondary to post-MVR changes, less likely myocarditis. No evidence of amyloidosis. 05/30/2020 Coronary CTA: No coronary plaque or stenosis Multiple areas of pericardial calcifications 5mm nicky-fissural nodule in LLL 06/17/2021 Fat Pad Excisional Biopsy: Negative for amyloidosis ([place] red stain negative) Assessment/Plan: In summary, Luan Higuera is a 66 y.o. man with HFrEF (LVEF 20-25% in March 2021), mitral valveprolapse c/b mitral regurgitation s/p bioprosthetic MV replacement (33mm Flexfit Biocor) on 06/14/2020, HTN, HLD, former tobacco use, and MGUS who is seen today for follow up. #Chronic systolic heart failure - EF: 34% by ejection fraction on most recent echocardiogram in 12/2024. Clinically appears to be the same as before. We will continue to monitor. - ACC stage: B - NYHA class: [place] Heart Association class II. Most recently CPET improved compared to the previous by 1 mL/kg/min of peak VO2. - Etiology: Non-ischemic cardiomyopathy. Has undergone a thorough workup revealing no evidence of CAD (by coronary CTA), normal HF serologic evaluation, and no evidence of inflammatory/infiltrative etiology by CMR. I doubt that his cardiomyopathy is secondary to MVP with mitral regurgitation as he is now >1 year out from his procedure without recovery in his LVEF. However, given calcification of his pericardium and the regionality in WMAs, I suspect this could be a prior viral infection causing myopericarditis. - Volume status: Euvolemic on examination today. - Neurohormonal blockade - BB: Toprol 50 mg twice daily. Continue with the same dose for now. - CHRISTIAN-I/ARB/ARNI: Continue Entresto 97-103 mg twice daily. He has not had any significant limitations with that. Occasionally complains of lightheadedness which is self-limited. - MRA: On eplerenone 25 mg daily. Will go ahead and increase eplerenone to 50 mg daily and reassesschemistry in about a week. This is to help with hypertensive response during activity. - SGLT 2 inhibitors: Empagliflozin 10 mg daily. Continue with the same dose - Diuretics: No need for diuretics given euvolemia - Vasodilators: None - Iron stores: Repeat iron studies in his primary care did not indicate the need for IV iron. We will forego that. - Device therapy: Most recent echocardiogram with ejection fraction of approximately 34%. We discussed about the possibility of his [employer]ER. He would like to forego that for now and continue monitoring his ejection fraction given good functional capacity. - Remote monitoring: No PVCs seen on echo today. - Advanced therapies: Not currently indicated as he is doing too well. Most recent CPET with low normal exercise capacity for age. No further need for consideration of advanced therapies. #Bioprosthetic MVR -Recent echocardiogram with normal gradients and good function -Will keep monitoring with repeat echoes in the future. - Most recent echocardiogram with normal gradients and good function. #Hypertension - Blood pressure today is somewhat elevated at 136/85 mmHg. -Reports good blood pressure control at home. -We will continue with the same blood pressure regimen including Entresto. - We will go ahead and increase eplerenone to 50 mg daily to assist with hypertensive response during activity. He will need to be getting a repeat chemistry. #Incidental pulmonary nodule - Coronary CTA from 05/30/2020 showing a 5mm nicky-fissural nodule in LLL - has been stable in repeat imaging -This will need to be addressed by his PCP. Medications: Patient's Medications New Prescriptions No medications on file Previous Medications ASPIRIN 81 MG CHEWABLE TABLET Take 81 mg by mouth daily. CA CIT-D3-MAG#[id number]-MAN-BOR (CALTRATE 600+D) 600 MG CALCIUM- 800 UNIT-50 MG TAB Take 1 tablet by mouth daily. CREATINE, BULK, 100 % POWD 5 mg by Miscellaneous route daily. EMPAGLIFLOZIN (JARDIANCE) 10 MG TABLET Take 1 tablet (10 mg total) by mouth every morning. ENTRESTO 97-103 MG PER TABLET TAKE 1 TABLET BY MOUTH TWICE DAILY FLAXSEED OIL 1,000 MG CAP Take 1,000 mg by mouth daily. GLUCOSAMINE-CHONDROITIN 500-400 MG CAP Take 2 capsules by mouth daily. MAGNESIUM OXIDE (MAG-OX) 400 MG (241.3 MG ELEMENTAL) TABLET Take 400 mg by mouth daily. METOPROLOL SUCCINATE (TOPROL-XL) 50 MG 24 HR TABLET Take 1 tablet (50 mg total) by mouth 2 (two) times a day. TESTOSTERONE (ANDROGEL) 20.25 MG/1.25 GRAM (1.62 %) TRANSDERMAL GEL PUMP Apply 50 mg of testosterone topically daily. THERAPEUTIC MULTIVITAMIN TABLET Take 1 tablet by mouth daily. Modified Medications Modified Medication Previous Medication EPLERENONE (INSPRA) 25 MG TABLET eplerenone (INSPRA) 25 MG tablet Take 2 tablets (50 mg total) by mouth daily. Take 1 tablet (25 mg total) by mouth daily. Discontinued Medications No medications on file Follow up: Follow-up in 6 months Chay Zelaya MD Staff Guidance And Control System Engineer, Advanced Heart Failure and Transplant Cardiology P [phone] I have spent a total of 42 minutes of time on today's encounter with the patient, which included preparation time on the date of visit (including review of prior diagnostic test results and medical records), [id number] time with the patient (including obtaining interval history, performing an exam and evaluation, independently interpreting test results and communicating those results to the patient, patient counseling and education, and ordering medications, tests, and/or procedures), and documenting the encounter note in the electronic medical record. This time does not include time devoted to independent ECG interpretation or LVAD interrogation. documented in this encounter Plan of Treatment Upcoming Encounters Date Type Department Care Team (Late st Contact Info) Description 11/03/2025 2:00 PM EDT Office Visit [facility] [place] [facility] [place] [address] [facility], 5th Floor, [address] [place] [id number] Chay Zelaya MD [address] [facility] [address] [place] [address] [email or web address] documented as of this encounter Procedures Procedure Name Priority Date/Time Associated Diagnosis Comments ECG 12-LEAD Routine 04/21/2025 1:27 PM EST Mitral valve prolapse documented in this encounter Results * (ABNORMAL) Basic Metabolic Panel (BMP) (04/21/2025 2:05 PM EST) Sodium 141 136 - 145 mmol/L 04/21/2025 5:55 PM [facility] Potassium 4.8 3.4 - 5.1 mmol/L 04/21/2025 5:55 PM [facility] Chloride 104 98 - 107 mmol/L 04/21/2025 5:55 PM [facility] CO2 25 20 - 31 mmol/L 04/21/2025 5:55 PM [facility] BUN 36(H) 6 - 23 mg/dL 04/21/2025 5:55 PM [facility] Creatinine 1.45(H) 0.60 - 1.30 mg/dL 04/21/2025 5:55 PM [facility] Glucose 106(H) 70 - 99 mg/dL 04/21/2025 5:55 PM [facility] Calcium 9.8 8.5 - 10.5 mg/dL 04/21/2025 5:55 PM [facility] eGFR 52(L) >59 mL/min/1. 73m2 04/21/2025 5:55 PM [facility] Comment:Estimated glomerular filtration rate calculated using the CKD-EPI refit equation. Anion Gap 12 3 - 17 mmol/L 04/21/2025 5:55 PM [facility] Blood (Blood) Venipuncture / Unknown 04/21/2025 2:05 PM EST 04/21/2025 5:21 PM EST us Chay Zelaya MD LAB BLOOD BKR ORDERABLES Fin al Result [facility] [address] [place] [address] * ECG 12-LEAD (04/21/2025 1:27 PM EST) Systolic Blood Pressure 136 mmHg [facility] Diastolic Blood Pressure 85 mmHg [facility] Ventricular Rate EKG/MIN 81 BPM [facility] Atrial Rate 81 BPM [facility] [place] Interval 180 ms [facility] QRS Duration 136 ms [facility] QT Interval 392 ms [facility] QTC Interval 455 ms [facility] P [place] 54 degrees [facility] R Wave [place] -59 degrees [facility] T Wave [place] 64 degrees [facility] 04/21/2025 1:27 PM EST 04/23/2025 8:18 AM EST Narrative [facility] - 04/23/2025 8:18 AM EST NORMAL SINUS RHYTHM LEFT AXIS DEVIATION INTRAVENTRICULAR BLOCK HIGH QRS VOLTAGE MAY BE NORMAL VARIANT OR DUE TO LVE ( Bob product ) ABNORMAL ECG WHEN COMPARED WITH ECG OF 13-Jan-2025 15:23, NO SIGNIFICANT CHANGE WAS FOUND Chay Zelaya MD ECG ORDERABLES Final Result Performing Organization Address City/[facility] Co de Phone Number [email or web address] documented in this encounter Visit Diagnoses Diagnosis Chronic systolic heart failure- Primary NICM (nonischemic cardiomyopathy) Mitral valve prolapse Mitral valve disorders History of mitral valve replacement with bioprosthetic valve Pure hypercholesterolemia IVCD (intraventricular conduction defect) Other heart block documented in this encounter Care Teams Loan Counselor Relationship Specialty Start Date End Date Serjio Wood MD [address] [place] [id number] PCP - General Internal Medicine 04/20/20 [place] [address] [place] [id number] Guidance And Control System Engineer Cardiology 07/20/20 documented as of this encounter Additional Source Comments The information contained in this document represents components of the legal health record. It is not the complete legal health record.[facility]
--- NOTE | 2025-04-25 10:04 | MHC.OFFVIS ---
Intake Visit Reasons: 6m/PSA/CBC/Testo/SET (NOUA) Intake Note: Patient is present for 6M/LABS Urology Medication:TESTOSTERONE Antibiotic Allergy:NONE Blood Thinner:NONE Labs done :04/10/25 Total Testosterone 172, PSA 0.26 Pilot Safety Inspector Required: No Accompanied by: Self / Same As Patient Allergies No Known Allergies (No Known Allergies*) Allergy (Verified 04/25/25 10:05) HPI Comments Details: Luan is a very pleasant male. He is a patient of Dr Wood. He is seen for the following urologic conditions - hypogonadism - renal cyst complex - erectile dysfunction Six-month follow-up Baseline testosterone 2 pumps had been stable Currently lower than typical Discussed application and ensuring gel is massaged into tissue until dry We did have a conversation regarding nocturia. He is on Jardiance. This will drop glucose in urine and drag water creating high volume urination and thirst. Has been undergoing cardiac review following mitral valve repair mid 2020 Complex renal cyst Bosniak 3 Detected through ultrasound 07/30 Left 1.2 cm question complex renal cyst 04/01 bilateral Bosniak type 2 cysts. No need for further follow-up Hypogonadism: 07/03 Appears that spironolactone had the aldosterone antagonist effect with reduced testosterone clearance Consistent rise in testosterone level despite stable administration of gel He presents today for further evaluation and followup of his hypogonadism - discussed likelihood of damage secondary to viral illness. Genetics may be warranted if fertility were a primary concern. Initial symptoms include erectile dysfunction Yes decreased libido Yes change in mood/depression Yes in muscle size/strength No increased fatigue/malaise Yes The onset of symptoms has been gradual Associate conditions include - diabetes obstructive sleep apnea No CAD - valve issues - mitral valve replacement 2019 dyslipidemia Yes hypertension Yes Laboratory results 07/28 , baseline - T 346 09/27 LH 25, T 240 10/28 T 290 - 02/27 T390 - 05/31 T 430, 11/28 T 460, Hct 44, PSA 0.3, 06/01 T 461 P 0.3, 11/29 T 412 P 0.3, 07/03 T 800 F 82 P 0.3, T 1230 F 84 H 51.6, 04/02 435, 11/01 462 58 0.3 46%, 05/03 760 0.3 48, 11/02 T 480, 12/25 T 172 0.3 Review labs in 6m [facility] Medical History Male hypogonadism Review of Systems Const Denies chills and Denies fever(s) Card Reports no additional complaints and Denies syncope Resp Denies cough GI Denies abdominal pain and Denies heartburn Reports as per HPI and Denies change in libido Neuro Denies syncope Psych Denies change in libido Endo Denies change in libido Physical Exam Const General: cooperative, healthy appearing, comfortable and no acute distress Orientation/consciousness: patient oriented x3 HEENT Face and sinus: Yes normal facial exam Mouth: moist mucous membranes Neck Neck: Yes normal visual inspection, Yes full ROM and Yes trachea midline Chest Chest palpation & inspection: normal inspection of the chest Resp Effort & Inspection: normal respiratory effort, able to speak in complete sentences and no respiratory distress GI Inspection: Yes normal to inspection Back/Spine/Pelvis Cervical Spine: normal cervical lordosis Thoracic/Lumbar Spine: thoracic and lumbar spine normal to inspection Skin General skin exam: no rashes or lesions noted Neuro General: patient oriented x3, gait normal, tone normal and moves all extremities Extrem General: Yes normal to inspection and Yes capillary refill normal Office Procedures Post Void Residual Post Residual Void Post Void Residual (PVR): 48 [id number] Void Residual by ultrasound Assessment & Plan Assessment & Plan (1) Hypogonadism in male: Code(s): E29.1 - Testicular hypofunction Category: Medical (2) Erectile dysfunction: Code(s): N52.9 - Male erectile dysfunction, unspecified Category: Medical Plan Continue therapy Six-month follow-up Orders: Orders Prostate Specific Antigen 5 Months E29.1 - Testicular hypofunction Hematocrit 5 Months E29.1 - Testicular hypofunction Testosterone, Total 5 Months E29.1 - Testicular hypofunction Medications: Refilled testosterone apply 1 pumps to each arm daily 2 pumps topical DAILY 75 grams 5RF 30 days E29.1 - Testicular hypofunction Patient Instructions: This note is constructed using voice recognition software. While every effort has been made to ensure accuracy construction administrative assistant errors may have been included. Imaging studies, laboratory and physical exam results were discussed and reviewed in detail. No major barriers to patient understanding were identified. An opportunity to ask questions regarding the treatment plan was provided. All questions were answered. The patient expressed understanding and agreement with the above treatment plan. The patient is aware they should contact our office by phone for worsening of their current condition or the appearance of new urologic symptoms. Compliance is encouraged with any medications and followup testing that is ordered. It is a privilege to participate in the urologic care of your patient. If you have any questions or concerns regarding treatment for the above conditions, or other urologic issues, please do not hesitate to contact me. The office telephone contact is [phone]. Sincerely, Dr Danish Gonzales MD, [facility] - Urology Compassionate Specialist Care for the Genitourinary System Coding Level of Care Code Est Pt Level 3 (77846) Add On Problem Visit Only Diagnoses Hypogonadism in male E29.1 Erectile dysfunction N52.9 CPT Codes Post Residual Void - PVR CPT Code: 63525-Nrns Void Residual by ultrasound ([id number])
--- OUTSIDE RECORDS SUMMARY | 2025-04-25 11:32 | XMS_ITS | Encounter Summary ---
Author Organization [facility] Address [address] [address] Phone Care Team Providers Care Turbine Attendant Name Role Phone Serjio Wood MD Primary Care Provider Luis Rodas MD Unavailable Encounter Details Date Type Department Care Team (Late st Contact Info) Description 06/14/2020 Procedure Pass [facility] [place] [place] [place] [address] [place] [address] Social History Tobacco Use Types Packs/Day Years [...] 06/15/2020 6:00 AM Domenica Rooney RN * [place] Suicide Severity Rating Scale (Screener/Recent Self-Report) Question Answer Date of Assessment Author 1. Wish to be (Past 1 Month) No 06/15/2020 6:00 AM Domenica Rooney RN 2. Non-Specific Active Suicidal Thoughts (Past 1 Month) No 06/15/2020 6:00 AM Domenica Rooney RN 6. Suicidal Behavior (Lifetime) No 06/15/2020 6:00 AM Domenica Rooney RN documented as of this encounter Plan of Treatment Upcoming Encounters Date Type Department Care Team (Late st Contact Info) Description 11/03/2025 2:00 PM EDT Office Visit [facility] [place] Failure & Transplantation [address] [facility], 5th Floor, [address] [place] [address] Chay Zelaya MD [address] [facility] [address] [place] [address] [email or web address] documented as of this encounter Visit Diagnoses Not on filedocumented in this encounter Additional Health Concerns Infection Onset Date Last Indicated Resolved Time CoV-Presumed 10/13/2021 10/13/2021 11/03/2021 1:21 AM EDT CoV-Risk Comment:Per Ambulatory Triage Form 10/21/2021 10/21/202110/21 9:34 AM EDT documented as of this encounter Care Teams Turbine Attendant Relationship Specialty Start Date End Date Serjio Wood MD [address] [place] [address] PCP - General Internal Medicine 04/20/20 Luis Rodas MD [address] [place] [address] Storage Management Architect Cardiology 07/20/20 documented as of this encounter Additional Source Comments The information contained in this document represents components of the legal health record. It is not the complete legal health record.[facility]
--- OUTSIDE RECORDS SUMMARY | 2025-04-25 11:33 | XMS_ITS | Patient Health Record ---
Author [facility] juliette [place] Address [address] [place] [address] Care Team Providers Care Telephone Collector Name Role Phone Nina PAUL, Serjio Primary Care Provider Red Cobb Unavailable [phone] Allergies No Known Allergies Reason For Referral No Information Medications Medication SIG (Take, Route, Frequency, Duration) Notes Start Date End Date Status Metoprolol Tartrate 100 MG 1 tablet with food Orally Twice a day; Duration: 30 day(s) 03/11/2023 Active Rosuvastatin Calcium 20 MG TAKE 1 TABLET BY MOUTH DAILY Oral; Duration: 90 Days Active Entresto 97-103 MG Oral; Duration: 30 Days Active Eplerenone 25 MG Oral; Duration: 90 Days Active Jardiance 10 MG Oral; Duration: 90 Days Active Voltaren 1 % as directed Externally 03/25/2023 Active Testosterone 1.62 % Transdermal; Duratio n: 30 Days Active Social History Tobacco Use: [...] primary osteoarthritis of the ankle and/or foot ([id number]) Primary osteoarthrit is, right ankle and foot (M19.071) Active confirmed Plan Of Treatment Pending Test Test Name Order Date X ray : Ankle, right 3V 03/25/2023 Insurance Providers Payer Name Payer Address Payer Phone Subscriber Number Group Number Insured Name Patient Relationship to Insured Coverage Start Date Coverage End Date Medicare National [employer] [address] [place] [address] [id number] Luan Martinez Self - patient is the insured [facility] Medicare Supplement [address] [place] [address] [id number] Luan Martinez Self - patient is the insured Medical (General) History Medical History History ICD Code Heart disease High blood pressure Measles Chicken pox Replacement Heart Valves Surgical History Surgery Date(Month/Year) mitral valve surgery 06/30 Bone Spurs 12/23
--- OUTSIDE RECORDS SUMMARY | 2025-04-25 11:33 | XMS_ITS | Encounter Summary ---
Author Organization [facility] Address [address] [place] [address] Phone Care Team Providers Care Chemical Process Analyst Name Role Phone Serjio Wood MD Primary Care Provider Luis Rodas MD Unavailable [phone] Encounter Details Date Type Department Care Team (Late st Contact Info) Description 03/26/2023 Procedure Pass [facility] [address] [facility], 5th Floor, [address] [place] [address] Social History Tobacco Use Types Packs/Day Years [...] Description 11/03/2025 2:00 PM EDT Office Visit [facility] Heart Failure & Transplantation [address] [facility], 5th Floor, [address] [place] [address] Chay Zelaya MD [address] [facility] [address] [place] [address] [email or web address] documented as of this encounter Visit Diagnoses Not on filedocumented in this encounter Care Teams Chemical Process Analyst Relationship Specialty Start Date End Date Serjio Wood MD [address] [place] [address] PCP - General Internal Medicine 04/20/20 [place] [address] [place] [address] Pocket Closer Cardiology 07/20/20 documented as of this encounter Additional Source Comments The information contained in this document represents components of the legal health record. It is not the complete legal health record.[facility]
--- OUTSIDE RECORDS SUMMARY | 2025-04-25 11:33 | XMS_ITS | Encounter Summary ---
Author Organization [facility] Address [address] [facility] [address] [place] [address] Phone Care Team Providers Care Test Driller Name Role Phone Serjio Wood MD Primary Care Provider HisLuis duckworth MD Unavailable [phone] Encounter Details Date Type Department Care Team (Late st Contact Info) Description 05/15/2020 Procedure Pass [facility], [place] [address] [facility], 2nd Floor, [address] [place] [address] Social History Tobacco Use Types Packs/Day Years [...] Description 11/03/2025 2:00 PM EDT Office Visit [facility] Heart Failure & Transplantation [address] [facility], 5th Floor, [address] [place] [address] Chay Zelaya MD [address] [facility] [address] [place] [address] [email or web address] documented as of this encounter Visit Diagnoses Not on filedocumented in this encounter Additional Health Concerns Infection Onset Date Last Indicated Resolved Time CoV-Presumed 10/13/2021 10/13/2021 11/03/2021 1:21 AM EDT CoV-Risk Comment:Per Ambulatory Triage Form 10/21/2021 10/21/202110/21 9:34 AM EDT documented as of this encounter Care Teams Test Driller Relationship Specialty Start Date End Date Serjio Wood MD [address] [place] [address] PCP - General Internal Medicine 04/20/20 Luis Rodas MD [address] [place] [address] Microsoft Bi Architect Cardiology 07/20/20 documented as of this encounter Additional Source Comments The information contained in this document represents components of the legal health record. It is not the complete legal health record.[facility]
--- OUTSIDE RECORDS SUMMARY | 2025-04-25 11:33 | XMS_ITS | Encounter Summary ---
Author Organization [facility] Address [address] [facility] [address] [place] [address] Phone Care Team Providers Care Welfare Aide Name Role Phone Serjio Wood MD Primary Care Provider Luis Rodas MD Unavailable [phone] Encounter Details Date Type Department Care Team (Late st Contact Info) Description 06/11/2020 Procedure Pass [facility] [place] [address] [place] [id number] Social History Tobacco Use Types Packs/Day Years [...] Description 11/03/2025 2:00 PM EDT Office [place] [facility] [place] [address] [facility], 5th Floor, [address] [place] [address] Chay Zelaya MD [address] [address] [email or web address] documented as of this encounter Visit Diagnoses Not on filedocumented in this encounter Additional Health Concerns Infection Onset Date Last Indicated Resolved Time CoV-Presumed 10/13/2021 10/13/2021 11/03/2021 1:21 AM EDT CoV-Risk Comment:Per Ambulatory Triage Form 10/21/2021 10/21/202110/21 9:34 AM EDT documented as of this encounter Care Teams Welfare Aide Relationship Specialty Start Date End Date Serjio Wood MD [address] [place] [address] PCP - General Internal Medicine 04/20/20 Luis Rodas MD [address] [place] [address] Wood Gluer Cardiology 07/20/20 documented as of this encounter Additional Source Comments The information contained in this document represents components of the legal health record. It is not the complete legal health record.[facility]
--- OUTSIDE RECORDS SUMMARY | 2025-04-25 11:33 | XMS_ITS | Encounter Summary ---
Author Organization [facility] Address [address] [facility] [address] [place] [address] Phone Care Team Providers Care Soakers Supervisor Name Role Phone Serjio Wood MD Primary Care Provider Luis Rodas MD Unavailable [phone] Encounter Details Date Type Department Care Team (Late st Contact Info) Description 10/19/2023 Procedure Pass [facility] Cardiology [address] [facility], [address] [place] [address] Social History Tobacco Use Types Packs/Day Years [...] Description 11/03/2025 2:00 PM EDT Office [place] [facility] [place] [place] [address] [facility], 5th Floor, [address] [place] [address] Chay Zelaya MD [address] [facility] [address] [place] [address] [email or web address] documented as of this encounter Visit Diagnoses Not on filedocumented in this encounter Care Teams Soakers Supervisor Relationship Specialty Start Date End Date Serjio Wood MD [address] [place] [address] PCP - General Internal Medicine 04/20/20 [place] [address] [place] [address] Meat Service Team Member Cardiology 07/20/20 documented as of this encounter Additional Source Comments The information contained in this document represents components of the legal health record. It is not the complete legal health record.[facility]
--- OUTSIDE RECORDS SUMMARY | 2025-04-25 11:34 | XMS_ITS | Encounter Summary ---
Author Organization [facility] Address [address] [facility] [address] [place] [address] Phone Care Team Providers Care Conductor Freight Name Role Phone Serjio Wood MD Primary Care Provider Luis Rodas MD Unavailable [phone] Encounter Details Date Type Department Care Team (Late st Contact Info) Description 05/02/2024 Procedure Pass [facility] Cardiology [address] [facility], [address] [place] [address] Social History Tobacco Use Types Packs/Day Years [...] Description 11/03/2025 2:00 PM EDT Office Visit [facility] Heart Failure & Transplantation [address] [facility], 5th Floor, [address] [place] [address] Chay Zelaya MD [address] [facility] [address] [place] [address] [email or web address] documented as of this encounter Visit Diagnoses Not on filedocumented in this encounter Care Teams Conductor Freight Relationship Specialty Start Date End Date Serjio Wood MD [address] [place] [address] PCP - General Internal Medicine 04/20/20 [place] [address] [place] [address] Antenna Machine Operator Cardiology 07/20/20 documented as of this encounter Additional Source Comments The information contained in this document represents components of the legal health record. It is not the complete legal health record.[facility]
--- OUTSIDE RECORDS SUMMARY | 2025-04-25 11:34 | XMS_ITS | Encounter Summary ---
Author Organization [facility] Address [address] [facility] [address] [place] [address] Phone Care Team Providers Care Commercial Manager Name Role Phone Serjio Wood MD Primary Care Provider HisLuis duckworth MD Unavailable [phone] Encounter Details Date Type Department Care Team (Late st Contact Info) Description 06/04/2021 Procedure Pass [facility] [address] [facility], 6th [place] [address] Social History Tobacco Use Types Packs/Day Years [...] Description 11/03/2025 2:00 PM EDT Office Visit [facility] Heart Failure & Transplantation [address] [facility], 5th Floor, [address] [place] [address] Chay Zelaya MD [address] [facility] [address] [place] [address] [email or web address] documented as of this encounter Visit Diagnoses Not on filedocumented in this encounter Additional Health Concerns Infection Onset Date Last Indicated Resolved Time CoV-Presumed 10/13/2021 10/13/2021 11/03/2021 1:21 AM EDT CoV-Risk Comment:Per Ambulatory Triage Form 10/21/2021 10/21/202110/21 9:34 AM EDT documented as of this encounter Care Teams Commercial Manager Relationship Specialty Start Date End Date Serjio Wood MD [address] [place] [address] PCP - General Internal Medicine 04/20/20 [place] [address] [place] [address] Inventory Checker Cardiology 07/20/20 documented as of this encounter Additional Source Comments The information contained in this document represents components of the legal health record. It is not the complete legal health record.[facility]
--- OUTSIDE RECORDS SUMMARY | 2025-04-25 11:34 | XMS_ITS | Encounter Summary ---
Author Organization [facility] Address [address] [facility] [address] [facility] [address] [address] [place] [address] Phone Care Team Providers Care Cook Candy Name Role Phone Serjio Wood MD Primary Care Provider HisLuis duckworth MD Unavailable [phone] Encounter Details Date Type Department Care Team (Late st Contact Info) Description 07/31/2021 Procedure Pass [facility] [place], [place] [address] [facility], 2nd Floor, [address] [place] [address] Social History Tobacco Use Types Packs/Day Years [...] Description 11/03/2025 2:00 PM EDT Office Visit [facility] Heart Failure & Transplantation [address] [facility], 5th Floor, [address] [place] [address] Chay Zelaya MD [address] [facility] [address] [place] [address] [email or web address] documented as of this encounter Visit Diagnoses Not on filedocumented in this encounter Additional Health Concerns Infection Onset Date Last Indicated Resolved Time CoV-Presumed 10/13/2021 10/13/2021 11/03/2021 1:21 AM EDT CoV-Risk Comment:Per Ambulatory Triage Form 10/21/2021 10/21/202110/21 9:34 AM EDT documented as of this encounter Care Teams Cook Candy Relationship Specialty Start Date End Date Serjio Wood MD [address] [place] [address] PCP - General Internal Medicine 04/20/20 Luis Rodas MD [address] [place] [address] Lime Sludge Mixer Cardiology 07/20/20 documented as of this encounter Additional Source Comments The information contained in this document represents components of the legal health record. It is not the complete legal health record.[facility]
--- OUTSIDE RECORDS SUMMARY | 2025-04-25 11:34 | XMS_ITS | Encounter Summary ---
Author Organization [facility] Address [address] [address] Phone Care Team Providers Care Camp Manager Name Role Phone Serjio Wood MD Primary Care Provider Luis Rodas MD Unavailable [phone] Encounter Details Date Type Department Care Team (Late st Contact Info) Description 06/14/2020 Procedure Pass [facility] [address] [place] [address] Social History Tobacco Use Types Packs/Day Years [...] 06/15/2020 6:00 AM Domenica Rooney RN * [place] Suicide Severity Rating Scale (Screener/Recent Self-Report) Question Answer Date of Assessment Author 1. Wish to be (Past 1 Month) No 06/15/2020 6:00 AM Domeniac Rooney RN 2. Non-Specific Active Suici anita Thoughts (Past 1 Month) No 06/15/2020 6:00 AM Devante Rooney, SONA 6. Suicidal Behavior (Lifetime) No 6:00 AM Domenica Rooney RN documented as of this encounter Plan of Treatment Upcoming Encounters Date Type Department Care Team (Late st Contact Info) Description 11/03/2025 2:00 PM EDT Office Visit [facility] [place] [address] [facility], 5th Floor, [address] [place] [address] Chay Zelaya MD [address] [facility] [address] [place] [address] [email or web address] documented as of this encounter Visit Diagnoses Not on filedocumented in this encounter Additional Health Concerns Infection Onset Date Last Indicated Resolved Time CoV-Presumed 10/13/2021 10/13/2021 11/03/2021 1:21 AM EDT CoV-Risk Comment:Per Ambulatory Triage Form 10/21/2021 10/21/202110/21 9:34 AM EDT documented as of this encounter Care Teams Camp Manager Relationship Specialty Start Date End Date Serjio Wood MD [address] [place] [address] PCP - General Internal Medicine 04/20/20 Luis Rodas MD [address] [place] [address] Motorcycle Designer Cardiology 07/20/20 documented as of this encounter Additional Source Comments The information contained in this document represents components of the legal health record. It is not the complete legal health record.[facility]
--- OUTSIDE RECORDS SUMMARY | 2025-04-25 11:34 | XMS_ITS | Encounter Summary ---
Author Organization [facility] Address [address] [facility] [address] [place] [address] Phone Care Team Providers Care Men'S Swim Coach Name Role Phone Serjio Wood MD Primary Care Provider Luis Rodas MD Unavailable [phone] Encounter Details Date Type Department Care Team (Late st Contact Info) Description 03/03/2022 Procedure Pass [facility] Cardiac US [address] [place] [address] Social History Tobacco Use Types Packs/Day Years [...] Description 11/03/2025 2:00 PM EDT Office Visit [facility] Heart Failure & Transplantation [address] [facility], 5th Floor, [address] [place] [address] Chay Zelaya MD [address] [address] [email or web address] documented as of this encounter Visit Diagnoses Not on filedocumented in this encounter Care Teams Men'S Swim Coach Relationship Specialty Start Date End Date Serjio Wood MD [address] [place] [address] PCP - General Internal Medicine 04/20/20 Luis Rodas MD [address] [place] [address] Cutter Operator Brick Cardiology 07/20/20 documented as of this encounter Additional Source Comments The information contained in this document represents components of the legal health record. It is not the complete legal health record.[facility]
--- OUTSIDE RECORDS SUMMARY | 2025-04-25 11:34 | XMS_ITS | Encounter Summary ---
Author Organization [facility] Address [address] [facility] [address] [place] [address] Phone Care Team Providers Care Workflow Developer Name Role Phone Serjio Wood MD Primary Care Provider Luis Rodas MD Unavailable [phone] Encounter Details Date Type Department Care Team (Late st Contact Info) Description 04/17/2025 Orders Only [facility] Pulmonary and Critical Care Unit [address] [facility], [address] [place] [address] Chau Renee [address] [place] [phone] [email or web address] SOB (shortness of breath) Social History Tobacco Use Types Packs/Day Years [...] Description 11/03/2025 2:00 PM EDT Office Visit [facility] Heart Failure & Transplantation [address] [facility], 5th Floor, [address] [place] [address] Chay Zelaya MD [address] [facility] [address] [place] [address] [email or web address] documented as of this encounter Procedures Procedure Name Priority Date/Time Associated Diagnosis Comments PULMONARY FUNCTION TEST Routine 03/27/2025 3:37 PM EST SOB (shortness of breath) documented in this encounter Results * Pulmonary Function Test Reason for Exam: Dyspnea/Shortness of Breath; Type of PFT Test: Spirometry without bronchodilator, DLCO, Lung Volumes; Performing Location: [facility] (03/27/2025 3:37 PM EST) Anatomical Region Laterality Modality Other 03/27/2025 3:37 PM EST Ermelinda Garcia CDL DRIVER PFT ORDERABLES Irma l Result documented in this encounter Visit Diagnoses Diagnosis SOB (shortness of breath) Shortness of breath documented in this encounter Care Teams Workflow Developer Relationship Specialty Start Date End Date Serjio Wood MD [address] [place] [address] PCP - General Internal Medicine 04/20/20 [place] [address] [place] [address] Turbine Inspector Cardiology 07/20/20 documented as of this encounter Additional Source Comments The information contained in this document represents components of the legal health record. It is not the complete legal health record.[facility]
--- OUTSIDE RECORDS SUMMARY | 2025-04-25 11:34 | XMS_ITS | Encounter Summary ---
Author Organization [facility] Address [address] [facility] [address] [place] [address] Phone Care Team Providers Care Upstairs Maid Name Role Phone Serjio Wood MD Primary Care Provider Luis Rodas MD Unavailable [phone] Encounter Details Date Type Department Care Team (Late st Contact Info) Description 07/31/2021 Procedure Pass [facility] Cardiac Echo Export [address] [place] [address] Social History Tobacco Use Types Packs/Day Years [...] [place], [place] Heart Failure & Transplantation [address] [facility], 5th Floor, [address] [place] [address] Chay Zelaya MD [address] [facility] [address] [place] [address] [email or web address] documented as of this encounter Visit Diagnoses Not on filedocumented in this encounter Additional Health Concerns Infection Onset Date Last Indicated Resolved Time CoV-Presumed 10/13/2021 10/13/2021 11/03/2021 1:21 AM EDT CoV-Risk Comment:Per Ambulatory Triage Form 10/21/2021 10/21/202110/21 9:34 AM EDT documented as of this encounter Care Teams Upstairs Maid Relationship Specialty Start Date End Date Serjio Wood MD [address] [place] [address] PCP - General Internal Medicine 04/20/20 Luis Rodas MD [address] [place] [address] Regulatory Analyst Cardiology 07/20/20 documented as of this encounter Additional Source Comments The information contained in this document represents components of the legal health record. It is not the complete legal health record.[facility]
--- OUTSIDE RECORDS SUMMARY | 2025-04-25 11:34 | XMS_ITS | Clinical Summary ---
Author Organization [facility] Address [address] [address] Phone Care Team Providers Care Goodyear Welter Name Role Phone Serjio Wood MD Primary Care Provider Lius Rodas MD Unavailable [phone] Allergies No known active allergies Medications Ca cit-D3-mag#11-zi xr-usyu-oub-bor (CALTRATE 600+D) 600 mg calcium- 800 unit-50 [...] Take 400 mg by mouth daily. Active ENTRESTO 97-103 mg per tabletIndication s:Chronic systolic heart failure TAKE 1 TABLET BY MOUTH TWICE DAILY 60 tablet 11 10/11/19 25 Active metoprolol succinate (TOPROL-XL) 50 MG 24 hr tabletIndication s:Chronic systolic heart failure Take 1 tablet (50 mg total) by mouth 2 (two) times a day. 180 tablet 3 02/04/20 25 Active empagliflozin (JARDIANCE) 10 mg tabletIndication s:Chronic systolic heart failure Take 1 tablet (10 mg total) by mouth every morning. 90 tablet 3 04/18/20 25 Active creatine, bulk, 100 % Powd 5 mg by Miscellaneous route daily. Active eplerenone (INSPRA) 25 MG tabletIndication s:Chronic systolic heart failure Take 2 tablets (50 mg total) by mouth daily. 90 tablet 3 04/21/20 25 Active atorvastatin (LIPITOR) 40 MG tablet Take 40 mg by mouth daily. 025 Discontin ued(No longer taking) JARDIANCE 10 mg tabletIndication s:Chronic systolic heart failure TAKE 1 TABLET(10 MG) BY MOUTH DAILY 90 tablet 3 03/16/20 24 025 Discontin ued(Reord er) eplerenone (INSPRA) 25 MG tabletIndication s:Chronic systolic heart failure Take 1 tablet (25 mg total) by mouth daily. 90 tablet 3 11/22/19 25 025 Discontin ued(Reord er) Active Problems Problem Noted Date Diagnosed Date NICM (nonischemic cardiomyopathy) 04/23/2025 Iron deficiency anemia 07/31/2023 History of mitral valve repl acement with bioprosthetic valve 06/04/2021 Hyperlipidemia 06/04/2021 Hypertension 06/04/2021 Systolic heart failure 06/04/2021 Mitral valve prolapse 06/04/2021 Mitral valve prolapse 06/14/2020 Encounters Date Type Department Care Team Description 04/21/2025 1:30 PM EST Office Visit [facility] [place] Failure & Transplantation [address] [facility] [place] [facility], 5th Floor, [address] [place] [address] Chay Zelaya MD Chronic systolic heart failure (Primary Dx); NICM (nonischemic cardiomyopathy); Mitral valve prolapse; History of mitral valve replacement with bioprosthetic valve; Pure hypercholesterolemia; IVCD (intraventricular conduction defect) 04/18/2025 Refill [facility] Heart Failure & Transplantation [address] [facility] [place] [facility], 5th Floor, [address] [place] [address] Mary Wilson RN Medication Refill 04/17/2025 Orders Only [facility] Pulmonary and Critical Care Unit [address] [facility], [address] [place] [address] Chau Renee SOB (shortness of breath) 04/17/2025 Transcribe Orders [facility] Pulmonary and Critical Care Unit [address] [facility], [address] [place] [address] Ermelinda Garcia CNP SOB (shortness of breath) (Primary Dx) 04/10/2025 Refill [facility] Heart Failure & Transplantation [address] [facility] [place] [facility], 5th Floor, [address] [place] [address] Chay Zelaya MD Medication Refill 03/27/2025 3:31 PM EST - 03/27/2025 11:59 PM EST Hospital Encounter [facility] Pulmonary and Critical Care Unit [address] [facility], 2nd Floor, [address] [place] [address] Chay Zelaya MD Discharge Disposition: Home or Self Care 03/27/2025 2:22 PM EST - 03/27/2025 3:30 PM EST Hospital Encounter [facility] Pulmonary and Critical Care Unit [address] [facility], [address] [place] [address] Chay Zelaya MD Discharge Disposition: Home or Self Care 02/01/2025 Refill [facility] Heart Failure & Transplantation [address] [facility] [place] [facility], 5th Floor, [address] [place] [address] Renetta Rajput FNP Medication Refill from Last 3 Months Immunizations Immunization Administration [...] Pulse 81 04/21/2025 1:30 PM EST Temperature 36.4 C (97.6 F) 06/17/2021 7:02 AM EST Respiratory Rate 16 06/19/2020 7:50 AM EST Oxygen Saturation 95% 06/18/2020 11:48 PM EST Inhaled Oxygen Concentration 96% 06/19/2020 7 :50 AM EST Weight 90.3 kg (199 lb) 04/21/2025 1:30 PM EST Height 185.4 cm (6' 1 ) 09/08/2022 1:41 PM EDT Body Mass Index 26.25 09/08/2022 1:41 PM EDT Plan of Treatment Upcoming Encounters Date Type Department Care Team (Late st Contact Info) Description 11/03/2025 2:00 PM EDT Office Visit [facility] Heart Failure & Transplantation [address] [facility] [place] [facility], 5th Floor, [address] [place] [address] Chay Zelaya MD [address] [address] [email or web address] Health Maintenance Due Date Last Done Comments DEPRESSION SCREENING 1968 COLOGUARD 2001 COLONOSCOPY 2001 COLORECTAL CANCER SCREENING 2001 FIT TEST 2001 FOBT 2001 SIGMOIDOSCOPY 2001 VIRTUAL COLONOSCOPY 2001 RSV VACCINE (1 - Risk 50-74 years 1-dose series) 2006 ABDOMINAL AORTIC ANEURYSM (AAA) SCREENING 2021 INFLUENZA VACCINE (#1) 2024 , 04/27/2023, 02/21/2022, Additional history exists COVID-19 VACCINE ( season) 2025 04/12/2021, 08/25/2020, 08/02/2020 BLOOD PRESSURE 10/20/2025 04/21/2025 POTASSIUM LEVEL 04/21/2026 04/21/2025, 07/09, 09/24/2022, Additional history exists Adult Td,Tdap Booster 10/11/2027 10/10/2017 SCREENING FOR DIABETES 04/21/2028 04/21/2025 LIPID PANEL 07/18/2029 07/18/2024, 03/13/2022 HEPATITIS A [...] this topic Medical Devices Implanted Type Area Maxillofacial Prosthodontist Device Identifier Shelf Expiration Date Model / Serial / Lot Valve Stent 33mm Mitral Bioprosthesis Tissue Flexfit Biocor - [id number] Implanted:Qty: 1 on 06/14/2020 by Olivier Gonzalez MD at [facility] [employer] 12/15/2023 [id number] / [id number] / Description:MRI SAFETY INFOR [facility] Non-clinical testing has demonstrated that the Biocor [...] Procedure Name Priority Date/Time Associated Diagnosis Comments BASIC METABOLIC PANEL (BMP) Routine 04/21/2025 2:05 PM EST Chronic systolic heart failure ECG 12-LEAD Routine 04/21/2025 1:27 PM EST Mitral valve prolapse CARDIOPULMONARY EXERCISE TEST PFT Routine 03/28/2025 7:57 AM EST Chronic systolic heart failure POCT HEMOGLOBIN Routine 03/27/2025 4:03 PM EST PULMONARY FUNCTION TEST Routine 03/27/20 3:37 PM EST SOB (shortness of breath) LIPID PANEL Routine 07/18/2024 8:39 AM EDT Chronic systolic heart failure HEPATITIS C ANTIBODY, QUALITATIVE Routine 06/13/2021 10:41 AM EST Need for hepatitis C screening test from Last 3 Months or Most Recently Relevant to Health Maintenance Results * (ABNORMAL) Basic Metabolic Panel (BMP) (04/21/2025 2:05 PM EST) Sodium 141 136 - 145 mmol/L 04/21/2025 5:55 PM EST [facility] Potassium 4.8 3.4 - 5.1 mmol/L 04/21/2025 5:55 PM EST [facility] Chloride 104 98 - 107 mmol/L 04/21/2025 5:55 PM EST [facility] CO2 25 20 - 31 mmol/L 04/21/2025 5:55 PM EST [facility] BUN 36(H) 6 - 23 mg/dL 04/21/2025 5:55 PM EST [facility] Creatinine 1.45(H) 0.60 - 1.30 mg/dL 04/21/2025 5:55 PM EST [facility] Glucose 106(H) 70 - 99 mg/dL 04/21/2025 5:55 PM EST [facility] Calcium 9.8 8.5 - 10.5 mg/dL 04/21/2025 5:55 PM EST [facility] eGFR 52(L) >59 mL/min/1. 73m2 04/21/2025 5:55 PM EST [facility] Comment:Estimated glomerular filtration rate calculated using the CKD-EPI refit equation. Anion Gap 12 3 - 17 mmol/L 04/21/2025 5:55 PM EST [facility] Blood (Blood) Venipuncture / Unknown 04/21/2025 2:05 PM EST 04/21/2025 5:21 PM EST us Chay Zelaya MD LAB BLOOD BKR ORDERABLES Fin al Result Performing Organization Address City/State/[facility] Co de Phone Number [address] [address] * ECG 12-LEAD (04/21/2025 1:27 PM EST) Systolic Blood Pressure 136 mmHg [facility] Diastolic Blood Pressure 85 mmHg [facility] Ventricular Rate EKG/MIN 81 BPM [facility] Atrial Rate 81 BPM [facility] SC Interval 180 ms [facility] QRS Duration 136 ms [facility] QT Interval 392 ms [facility] QTC Interval 455 ms [facility] P [place] 54 degrees [facility] R Wave [place] -59 degrees [facility] T Wave [place] 64 degrees [facility] 04/21/2025 1:27 PM EST [...] ECG ORDERABLES Final Result Performing Organization Address City/[facility]/ZIP Co de Phone Number [facility] * Cardiopulmonary Exercise Test ([facility] Only) (03/28/2025 7:57 AM EST) Anatomical Region Laterality Modality Other 03/28/2025 7:57 AM EST Chay Zelaya MD PFT ORDERABLES Final Result * POCT Hemoglobin (03/27/2025 4:03 PM EST) Hemoglobin 16.2 13.5 - 17.5 g/dL 03/27/2025 4:05 PM EST [facility] POCT SPECIAL FUNCTION LAB GROUPS 1 & 2 Blood (Blood) 03/27/2025 4:0 3 PM EST 03/27/2025 4:05 PM EST Chay Zelaya MD LAB POCT DOCKED DEVICE UNSOL ICTED RESULTS Final Result Performing Organization Address [facility] Co de Phone Number [facility] POCT SPECIAL FUNCTION LAB GROUPS 1 & [address] [place] [address] * Pulmonary Function Test Reason for Exam: Dyspnea/Shortness of Breath; Type of PFT Test: Spirometry without bronchodilator, DLCO, Lung Volumes; Performing Location: [facility] (03/27/2025 3:37 PM EST) Anatomical Region Laterality Modality Other 03/27/2025 3:37 PM EST Ermelinda Garcia CNP PFT ORDERABLES Irma l Result * (ABNORMAL) Lipid panel (07/18/2024 8:39 AM EDT) HDL 55 mg/dL [facility] Comment: Interpretation <40 mg/dL: Low HDL cholesterol (major risk factor for CHD) Greater than or equal to 60 mg/dL: High HDL cholesterol ( negative risk factor for CHD) HDL - cholesterol is affected by a number of factors, e.g. smoking, excerise, hormones, sex and age. CHOLESTEROL 160 0 - 240 mg/dL [facility] TRIGLYCERIDES 114 30 - 160 mg/dL [facility] LDL 82 50 - 129 mg/dL [facility] Comment: LDL levels in terms of risk for coronary heart disease: <100 mg/dL: Optimal 100-129 mg/dL: Near or above optimal 130-159 mg/dL: Borderline high 160-189 mg/dL: High >190 mg/dL: Very High CARDIAC RISK RATIO 2.9(L) 3.4 - 5.0 C [facility] Blood 07/18/2024 8:39 AM EDT 07/18/2024 8:41 AM EDT us Renetta EWINGP LAB BLOOD BKR ORDERABL ES Final Result Performing Organization Address [facility] Co de Phone Number [address] [address] * Hepatitis C antibody, qualitative (06/13/2021 10:41 AM EST) HCV NON-REACTIV E NON-REACTI VE [facility] Blood 06/13/2021 10:4 1 AM EST 06/13/2021 10:45 AM EST us Otis Trammell MD LAB BLOOD BKR ORDERABLES Final Result Performing Organization Address [facility] Co de Phone Number [address] [address] from Last 3 Months or Most Recently Relevant to Health Maintenance Insurance MEDICARE PART A & B GENERIC COMMERCIAL MEDICARE PART A & B GENERIC COMMERCIAL MEDICARE PART A & B GENERIC COMMERCIAL MEDICARE PART A & B GENERIC COMMERCIAL MEDICARE PART A & B GENERIC COMMERCIAL MEDICARE PART A & B GENERIC COMMERCIAL MEDICARE PART A & B Member Subscriber Plan / Payer ( fective 2021-) Name:Luan Higuera Member ID:[id number] Relation to Subscriber:Self Name:Luan Higuera Subscriber ID:[id number] Payer ID:[id number] Group ID:Not on file Type:Medicare Address: [employer] [address] [place] [address] GENERIC COMMERCIAL MEDICARE PART A & B Member Subscriber Plan / Payer ( fective 2021-) Name:Luan Higuera Member ID:[id number] Relation to Subscriber:Self Name:Luan Higuera Subscriber ID:[id number] Payer ID:[id number] Group ID:Not on file Type:Medicare Address: [employer] [address] [place] [address] GENERIC COMMERCIAL MEDICARE PART A & B GENERIC COMMERCIAL Advance Directives For more information, please contact: [phone] (9AM - 5PM Olivia/[facility], Thursday-Thursday) Documents on File Type Date Recorded Patient Bus Monitor Expl anation Healthcare Proxy 05/30/2020 1:38 PM * Full Code (Latest Code Status on File) Date Activated Date Inactivated Comments 06/15/2020 12:01 AM Question Answer Comments Code Status Confirmed With: PatientOther (specif y below) Code Status Communicated To: Inpatient Attending Care Teams Goodyear Welter Relationship Specialty Start Date End Date Serjio Wood MD [address] [place] [address] PCP - General Internal Medicine 04/20/20 Luis Rodas MD [address] [place] [address] Soccer Commentator Cardiology 07/20/20 Additional Source Comments The information contained in this document represents components of the legal health record. It is not the complete legal health record.[facility]
== END 2025-04-25 11:02 | disposition home or self-care (01) ==
PROVIDERS: PCP Internal Medicine; Visit Provider Urology
DX: E29.1 Testicular hypofunction (principal); N52.9 Male erectile dysfunction, unspecified
CPT/HCPCS: 99213; G2211

== ENCOUNTER → 2025-04-25 09:43 | Outpatient (BNVA) | payer MEDICARE, OTHER, SELFPAY | PROVIDERS: PCP Internal Medicine; Visit Provider Urology | DX: E29.1 Testicular hypofunction (principal); N52.9 Male erectile dysfunction, unspecified | CPT/HCPCS: 51798; 99212 ==